=== PATIENT | male | born 1975 | race Caucasian/White ===

== ENCOUNTER 2021-01-08 11:41 | Outpatient (REF) | payer OTHER, SELFPAY ==
[2021-01-08 13:23] LABS: HCT 44.1 % (40.0-50.0); HGB 15.8 g/dL (13.5-17.5); MCH 32.2 pg (27.0-33.0); MCHC 35.8 % (32.0-36.0); MCV 89.8 fL (80-95); MPV 10.1 fL (8.0-11.0); Platelet Count 215 10^3/uL (130-400); RBC 4.91 10^6/uL (4.36-5.78); RDW 11.9 % (11.8-14.1); RDW-SD 38.8 fL; WBC 7.61 10^3/uL (4.4-10.8)
[2021-01-08 13:59] LABS: ALT 34 U/L (16-63); AST 32 U/L (15-37); Albumin 4.3 g/dL (3.4-5.0); BUN 21 mg/dL (7-18); Bilirubin, Total 0.7 mg/dL (0.2-1.0); Calcium 9.2 mg/dL (8.5-10.1); Calculated LDL 148 mg/dL (<100); Chloride 104 mmol/L (98-107); Cholesterol 241 mg/dL (<200); Glucose 88 mg/dL (74-106); HDL Cholesterol 68 mg/dL (40-60); Potassium 3.8 mmol/L (3.5-5.1); Sodium 142 mmol/L (136-145); Total Protein 7.3 g/dL (6.4-8.2); Triglyceride 127 mg/dL (<150)
[2021-01-08 14:19] LABS: Alkaline Phosphatase 74 U/L (46-116)
== END 2021-01-08 11:42 | disposition home or self-care (01) ==
LOC: NCHCN 11:41
PROVIDERS: PCP Nurse Practitioner Family; Visit Provider Nurse Practitioner Family
DX: K92.1 Melena (principal); N50.9 Disorder of male genital organs, unspecified; Z13.220 Encounter for screening for lipoid disorders; M25.561 Pain in right knee
CPT/HCPCS: 80053; 80061; 85027

== ENCOUNTER 2022-02-19 10:53 | Outpatient (REF) | payer OTHER, SELFPAY ==
--- NOTE | 2022-02-19 09:10 | SKI_PTH ---
PATIENT: Dori Rojas LOC: [facility]#:[id number] AGE/SX: 46/M ROOM: RE02/19/[address]: Dania Villegas : 1975 BED: DIS: 02/19/2022 SPEC #: [id number] RECD: 02/19/22 18:04 STATUS: KG REQ #: [id number] RICARDO: 02/19/22 09:[address]: Dania Villegas DEPT: Surgical Specimen RECD BY: Ce Busyb ENTERED: 02/19/22 18:04 SP TYPE: MONTSE PRATHER DR: Lacey Delarosa Tissues: 1 - SKIN BIOPSY(SHAVE/PUNCH) Procedures: SKIN LEVEL 4 Comments: [id number]
--- OUTSIDE RECORDS SUMMARY | 2022-02-19 11:00 | XMS_ITS | Encounter Summary ---
:1975 Author Organization [facility] [place] [address] Care Team Providers Name Role Phone Lacey Newell DOLORES Primary Care Provider Reason for Visit Reason Comments Testicular Mass Encounter Details Date Type Department Care Team Description 03/10/2019 Office Visit Urology at [facility] [place] Sania Patterson, Adenomatoid tumor [facility] [place] [address] UROLOGY DEPT [place], [place] [address] (Wo rk) Social History Tobacco Use Types Packs/Day Years Used Date Never Smoker Smokeless Tobacco: Never Used Comments: marijuana only Sex Assigned at Date Recorded Not on file documented as of this encounter Last Filed Vital Signs Vital Sign Reading Time Taken Comments Blood Pressure 119/75 03/10/2019 2:06 PM EDT Pulse 48 03/10/2019 2:06 PM EDT Temperature 36.7 ??C (98 ??F) 03/10/2019 2:06 PM EDT Respiratory Rate 16 03/10/2019 2:06 PM EDT Oxygen Saturation 98% 03/10/2019 2:06 PM EDT Inhaled Oxygen Concentration - - Weight - - Height - - Body Mass Index - - documented in this encounter Progress Notes Sania Patterson MD - 03/10/2019 2:00 PM EDT UROLOGY NOTE ?? 43 yo male who is here today as a scheduled follow up for a right sided testicular mass. He denies any changes in size or pain. He underwent a follow up scrotal u/s today. ?? Past??Medical??History No past medical history on file. Past??Surgical??History Past Surgical History: Procedure Laterality Date ??? HERNIA REPAIR Bilateral ? inguinal ?? Social??History Social History ?? Socioeconomic History ??? Marital status: ? Spouse name: None ??? Number of children: None ??? Years of education: None ??? Highest education level: None Social Needs ??? Financial resource strain: None ??? Food insecurity - worry: None ??? Food insecurity - inability: None ??? Transportation needs - medical: None ??? Transportation needs - non-medical: None Occupational History ??? None Tobacco Use ??? Smoking status: Never Smoker ??? Smokeless tobacco: Never Used ??? Tobacco comment: marijuana only Substance and Sexual Activity ??? Alcohol use: None ??? Drug use: None ??? Sexual activity: None Other Topics Concern ??? None Social History Narrative ??? None ?? Family??History Family History Problem Relation Age of Onset ??? Cancer Father ? testis cancer ?? ROS: negative for fever, chills, nausea, vomiting, diarrhea, constipation, hematuria, dysuria, CP, SOB ?? Most Recent Vitals: 03/10/19 1406 BP: 119/75 Pulse: (!) 48 Resp: 16 Temp: 36.7 ??C (98 ??F) SpO2: 98% Alert, oriented, nad External genitalia appear normal Right upper pole, medial testicular nodule noted and appears stable in size. ? Scrotal (Signed Final 03/10/2019 02:04 pm) ?? PATIENT INFO: ID #: [id number] : [birth year] (43 yrs) Name: JOSE MARTIN ROJAS Visit Date: 03/10/2019 01:29 pm ?? PERFORMED BY: Performed By: Karen Soto RDMS Attending: Jazmín Bonilla MD Referred By: SANIA PATTERSON Location: [facility] ?? SERVICE(S) PROVIDED: [facility] - Scrotum and Contents with Limited Vascular 09125, 35040 evaluation - [id number] ?? INDICATIONS: right testis mass ?? COMPARISON: Ultrasound: 01/10/2018, 06/16/2018, 09/07/2018 ?? RIGHT TESTICLE: Measurement(cm) L: 5.0 AP: 2.7 TV: 3.2 Vol (ml): 22.6 Vascularity: Normal color Doppler vascularity ?? -------- Lesions: -------- # Date Location Description L AP TV (cm) 1 03/10/19 Lateral 0.7 0.4 0.7 Superior # Date Location Description L AP TV (cm) 1 09/07/18 Lateral Echogenic 0.6 0.4 0.5 Superior halo with vascularity 1 06/16/18 Lateral 0.7 0.5 0.7 Superior ?? RIGHT EPIDIDYMIS: Head: Epididymal cyst,simple subcentemeter Body: Corrugated S/p vasectomy Tail: Corrugated s/p vasectomy Vascularity: Normal ?? RIGHT OTHER: Hydrocele: Small Varicocele: Not visualized ?? LEFT TESTICLE: Vascularity: Normal color Doppler vascularity ?? LEFT EPIDIDYMIS: Head: Normal Body: Corrugated S/p vasectomy Tail: Corrugated s/p vasectomy Vascularity: Normal ?? LEFT OTHER: Hydrocele: Small Varicocele: Not visualized ?? IMPRESSION Stable size and morphology and peripheral vascularity of the lateral superior peripheral right sided mass that currently measures 7 x 4 x 7 mm. This has been stable since May 2018. I believe that in fact this mass is located within the tunica and imaging on the current exam demonstrates echogenic splaying of the tunica about this mass on multiple images. 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 I explained the findings to the patient and explained to him that these tumors were benign and no intervention was needed. I offered him to schedule a scrotal u/s in 1y vs as needed for change in size of symptoms. He will discuss his options with his (who is a nurse), and contact me back if he wants to schedule a visit in 1 year. 17 minutes of this 20 minutes encounter was spent in counseling and coordination of care documented in this encounter Plan of Treatment Not on filedocumented as of this encounter Visit Diagnoses Diagnosis Adenomatoid tumor documented in this encounter Care Teams [employer] Special Education Teacher Relationship Specialty Start Date End Date Lacey Newell APRN PCP - General Family Medicine 09/07/18 [address] [place] [address] documented as of this encounter
--- OUTSIDE RECORDS SUMMARY | 2022-02-19 11:00 | XMS_ITS | Encounter Summary ---
:1975 Author Organization [facility] [place] [address] Care Team Providers Name Role Phone Lacey Newell DOLORES Primary Care Provider Reason for Visit Reason Comments Testicular Pain Encounter Details Date Type Department Care Team Description 01/30/2021 Office Visit Urology at [facility] [place] Sania Patterson, Adenomatoid tumor [facility] [place] [address] UROLOGY DEPT [place], [place] [address] (Wo rk) Social History Tobacco Use Types Packs/Day Years Used Date Never Smoker Smokeless Tobacco: Never Used Comments: marijuana only Sex Assigned at Date Recorded Not on file documented as of this encounter Last Filed Vital Signs Vital Sign Reading Time Taken Comments Blood Pressure 120/74 01/30/2021 10:37 AM EDT Pulse 47 01/30/2021 10:37 AM EDT Temperature - - Respiratory Rate - - Oxygen Saturation - - Inhaled Oxygen Concentration - - Weight 69.4 kg (153 lb) 01/30/2021 10:37 AM EDT Height - - Body Mass Index 23.96 09/07/2018 2:34 PM EST documented in this encounter Progress Notes Sania Patterson MD - 01/30/2021 10:40 AM EDT UROLOGY NOTE ?? Mr Rojas was seen by me few years ago for a right sided testicular mass which was consistent withan adenomatoid tumor. He was followed with scrotal u/s which showed no change in size over a year. He was seen by his PCP recently who suggested that he'd come here for a follow up. He denies any change is size but he states that the mass may be more tender to touch. ?? Past??Medical??History No past medical history on file. ?? Past??Surgical??History ? Past Surgical History: Procedure Laterality Date ??? HERNIA REPAIR Bilateral ? inguinal ?? Social??History Social History ? Socioeconomic History ??? Marital status: ? Spouse [...] Social History Narrative ??? None ?? Family??History ? Family History Problem Relation Age of Onset ??? Cancer Father ?testis cancer ?? ROS: negative for fever, chills, nausea, vomiting, diarrhea, constipation, hematuria, dysuria, CP, SOB ? Patient Vitals for the past 24 hrs: Pulse BP 01/30/21 1037 (!) 47 120/74 Alert, oriented, nad External genitalia appear normal Right upper pole, medial testicular nodule noted and appears stable in size, ~5mm. ?Scrotal ?(Signed Final 03/10/2019 02:04 pm) ?? PATIENT INFO: ??ID #: ?[id number] ?: ??[birth year] (43 yrs) ??Name: ?NETDAHE JAREN ?Visit Date: 03/10/2019 01:29 pm ?? PERFORMED BY: ??Performed By: ?Karen Soto RDMS ??Attending: ?Chad LEBLANC, Jazmín Price ??Referred By: ?SANIA PATTERSON ??Location: ?[facility] ?? SERVICE(S) PROVIDED: ?[facility] - Scrotum and Contents with Limited Vascular ?46349, [address]326 ?evaluation - [id number] ?? INDICATIONS: ?right testis mass ?? COMPARISON: ??Ultrasound: 01/10/2018, 06/16/2018, 09/07/2018 ?? RIGHT TESTICLE: ??Measurement(cm) ?L: ??5.0 ?AP: ?2.7 ?TV: ??3.2 ??Vol (ml): ?22.6 ??Vascularity: ?Normal color Doppler vascularity ?? -------- Lesions: -------- ?# ?Date ?Location ?Description ?L ?AP ?TV (cm) ?1 ?07/17/19 ?Lateral ?0.7 ?0.4 ?0.7 ?Superior ?# ?Date ?Location ?Description ?L ?AP ?TV (cm) ?1 ?01/14/19 ?Lateral ?Echogenic ?0.6 ?0.4 ?0.5 ?Superior ?halo with ?vascularity ?1 ?10/18 ?Lateral ?0.7 ?0.5 ?0.7 ?Superior ?? RIGHT EPIDIDYMIS: ??Head: ?Epididymal cyst,simple subcentemeter ??Body: ?Corrugated S/p vasectomy ??Tail: ?Corrugated s/p vasectomy ??Vascularity: ?Normal ?? RIGHT OTHER: ??Hydrocele: ?Small ??Varicocele: ?Not visualized ?? LEFT TESTICLE: ??Vascularity: ?Normal color Doppler vascularity ?? LEFT EPIDIDYMIS: ??Head: ?Normal ??Body: ?Corrugated S/p vasectomy ??Tail: ?Corrugated s/p vasectomy ??Vascularity: ?Normal ?? LEFT OTHER: ??Hydrocele: ?Small ??Varicocele: ?Not visualized ?? IMPRESSION ?Stable size and morphology and peripheral vascularity ??of ??the lateral superior peripheral right sided mass that ??currently measures 7 x 4 x ??7 mm. This has been stable since May 2018. I ??believe that in fact this mass ??is located within the tunica and imaging on the current ??exam demonstrates ??echogenic splaying of the tunica about this mass on ??multiple images. I believe ??this represents an adenomatoid tumor of the tunica ??vaginalis. ?? 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 We again discussed the findings and I offered him a repeat scrotal u/s which he declined. I recommended testicular self examination and I encouraged him to contact me back with any changes in size. He will follow up as needed. documented in this encounter Plan of Treatment Not on filedocumented as of this encounter Visit Diagnoses Diagnosis Adenomatoid tumor documented in this encounter Care Teams Housing Installer Relationship Specialty Start Date End Date Lacey Newell APRN PCP - General Family Medicine 09/07/18 [address] [place] [address] documented as of this encounter
--- OUTSIDE RECORDS SUMMARY | 2022-02-19 11:00 | XMS_ITS | Encounter Summary ---
:1975 [place] [address] Care Team Providers Name Role Phone Lacey Newell DOLORES Primary Care Provider Encounter Details Date Type Department Care Team Description 09/07/2018 Laboratory Appointment Lab 3L [facility] [place] [address] Social History Tobacco Use Types Packs/Day Years Used Date Never Smoker Smokeless Tobacco: Never Used Comments: marijuana only Sex Assigned at Date Recorded Not on file documented as of this encounter Plan of Treatment Not on filedocumented as of this encounter Procedures Procedure Name Priority Date/Time Associated Comments Diagnosis AFP TUMOR MARKER STAT 09/07/2018 12:44 Testicular mass Resu lts for this PM EST procedure are i n the results section. BETA HCG, QUANTITATIVE STAT 09/07/2018 12:44 Testicular mas s Results for this PM EST procedure are i n the results section. LACTATE DEHYDROGENASE STAT 09/07/2018 12:44 Testicular mass Results for this PM EST procedure are i n the results section. documented in this encounter Results Beta HCG, quantitative (09/07/2018 12:44 PM EST) P athologist Signature Beta hCG Quant <1 0 - 2 MECCA RIVERA mlU/ML [facility] Comment: REFERENCE RANGES NON- FEMALE: ??Less than 5 mIU/m L POSTMENOPAUSAL FEMALE: ??Less than 8 mIU /mL ? -- FEMALES -- Weeks of ? HCG range ??(mIU/mL) ? 3 weeks ? 5.8 - 71.2 ? 4 weeks ? 9.5 - 750 ? 5 weeks ? 217 - 7,138 ? 6 weeks ? 158 - 31,795 ? 7 weeks ? 3,697 - 163,563 ? 8 weeks ? 32,065 - 149,571 ? 9 weeks ? 63,803 - 151,410 ?10 weeks ? 46,509 - 186,977 ?12 weeks ? 27,832 - 210,612 ?14 weeks ? 13,950 - 62,530 ?15 weeks ? 12,039 - 70,971 ?16 weeks ? 9,040 - 56,451 ?17 weeks ? 8,175 - 55,868 ?18 weeks ? 8,099 - 58,176 Specimen Anatomical Collection Method Collection Time Receive d Time (Source) Location / / Volume Laterality Blood specimen 09/07/2018 12:44 9 (specimen) PM EST 12:54 PM EST Resulting Agency Comment Spec In Lab Neri Patterson MD CHEMISTRY ORDERABLES Performing Organization Address City/[facility] [address]/[facility] [place] [address] (ABNORMAL) Lactate Dehydrogenase (09/07/2018 12:44 PM EST) P athologist Signature [facility] [address] (H) [address] - [address] [facility] unit/L [facility] Specimen Anatomical Collection Method Collection Time Receive d Time (Source) Location / / Volume Laterality Blood specimen 09/07/2018 12:44 9 (specimen) PM EST 12:54 PM EST Resulting Agency Comment Spec In Lab Neri Patterson MD CHEMISTRY ORDERABLES Performing Organization Address City/[facility] [address]/[facility] [place] [address] AFP tumor marker (09/07/2018 12:44 PM EST) P athologist Signature AFP 7.6 <=8.3 ng/mL [facility] Specimen Anatomical Collection Method Collection Time Receive d Time (Source) Location / / Volume Laterality Blood specimen 09/07/2018 12:44 9 (specimen) PM EST 12:54 PM EST Resulting Agency Comment Spec In Lab Neri Patterson MD CHEMISTRY ORDERABLES Performing Organization Address City/[facility] [address]/ZIP Code Phon e Number [facility] [place] [address] documented in this encounter Visit Diagnoses Diagnosis Testicular mass Other specified disorder of male genital organs documented in this encounter Care Teams Elementary Education Teacher Relationship Specialty Start Date End Date Lacey Newell, PARTS PICKER PCP - General Family Medicine 09/07/18 [address] [place] [address] documented as of this encounter
--- OUTSIDE RECORDS SUMMARY | 2022-02-19 11:00 | XMS_ITS | Encounter Summary ---
:1975 Author Organization [facility] [place] [address] Care Team Providers Name Role Phone Lacey Newell DOLORES Primary Care Provider Encounter Details Date Type Department Care Team Description 09/07/2018 Hospital Encounter [place] [facility] [place]ia Patterson Testicular mass [facility] [place] [address] UROLOGY DEPT [phone] [place], [place] [address] Social History Tobacco Use Types Packs/Day Years Used Date Never Smoker Smokeless Tobacco: Never Used Comments: marijuana only Sex Assigned at Date Recorded Not on file documented as of this encounter Plan of Treatment Not on filedocumented as of this encounter Procedures Procedure Name Priority Date/Time Associated Diagnosis Comme nts US SCROTUM Routine 09/07/2018 1:52 PM Testicular mass Result s for this EST procedure are i n the results section . documented in this encounter Results US Scrotum (09/07/2018 1:52 PM EST) Anatomical Region Laterality Modality Pelvis Ultrasound Specimen (Source) Anatomical Collection Method Collection Time Re ceived Time Location / / Volume Laterality 09/07/2018 1:52 PM EST Impressions 09/07/2018 2:11 PM EST 1. Stable size and appearance of the ec hogenic, ovoid focus with a more sonolucent center arising from or abutt ing the capsule of the interpolar region of the right testicle. No increased vas cularity. This most likely represents a focus of old insult rather than a testi cular neoplasm but a follow-up ultrasound in six months is suggested to document continued stability. 2. Both testicles are normal in overall size and echotexture other than the above lesion. 3. Small bilateral epididymal head cyst s. 4. Small left varicocele and small, lew ateral hydroceles. ? Khris mireles MD Electronically Signed Final Report ?? 02:11 pm Narrative 09/07/2018 2:11 PM EST Scrotal ?(Signed Final 09/07/2018 02:11 pm) PATIENT INFO: ID #: ? [id number] ?: ??[birth year] (42 yrs) Name: ? JOSE MARTIN BROWNDDARD ? Visit Date: 09/07/2018 01:52 pm PERFORMED BY: Performed By: ? Ranjit Lennon RDMS Attending: ?Esau LEBLANC, José Pereira. Referred By: ?SANIA PATTERSON Location: ? [facility] SERVICE(S) PROVIDED: ??[facility] - Scrotum and Contents with Limit ed Vascular ?28395, 74574 ??evaluation - [id number] INDICATIONS: ??testicular mass COMPARISON: Ultrasound: OUTSIDE Scrotal 06/16/18 -------- HISTORY: -------- History of Vasectomy RIGHT TESTICLE: Measurement(cm) ? L: ??5.0 ?AP: ?? 2.8 ? TV: ??3.1 Vol (ml): ?22.7 Vascularity: ?Normal color Doppler vascularity -------- Lesions: -------- ??# ?Date ?Location ? Description ? L ? AP ? TV (cm) ??1 ?09/07/18 ?Lateral ? Echogenic ?0.6 ?0.4 ?0.5 ? Superior ? halo with ?vascularity Comment: ?Normal texture. Color Dop pler imaging utilized for ? this study RIGHT EPIDIDYMIS: Head: ?Epididymal cysts, largest me asuring 0.5 x 0.4 x 0.6 ?cm Body: ?Normal Tail: ?Normal Vascularity: ?? Normal Comment: ?Normal texture RIGHT OTHER: Hydrocele: ? Small Varicocele: ?Not visualized Other Findings: ??Appendix testis noted . LEFT TESTICLE: Measurement(cm) ? L: ??4.9 ?AP: ?? 2.6 ? TV: ??2.8 Vol (ml): ?18.7 Vascularity: ?Normal color Doppler vascularity Comment: ?Normal texture, no intrat esticular mass. Color ? Doppler imaging utili zed for this study LEFT EPIDIDYMIS: Head: ?Epididymal cysts, largest me asuring 0.6 x 0.5 x 0.6 ?cm. Body: ?Corrugated S/p vasectomy Tail: ?Corrugated s/p vasectomy Vascularity: ?? Normal Comment: ?Corrugated LEFT OTHER: Hydrocele: ? Small Varicocele: ?Mild Procedure Note Khris Cifuentes MD - 09/07/2018Format ting of this note might be different from the original. Scrotal (Signed Final 09/07/2018 02:11 pm) PATIENT INFO: ID #: [id number] : [birth year] (42 y rs) Name: JOSE MARTIN ROJAS Visit Date: 08/25 01:52 pm PERFORMED BY: Performed By: Ranjit Lennon RDMS Attending: Khris Cifuentes MD Referred By: SANIA PATTERSON Location: [facility] SERVICE(S) PROVIDED: [facility] - Scrotum and Contents with Limited Vascular 23022, [address]06 evaluation - [id number] INDICATIONS: testicular mass COMPARISON: Ultrasound: OUTSIDE Scrotal 06/16/18 -------- HISTORY: -------- History of Vasectomy RIGHT TESTICLE: Measurement(cm) L: 5.0 AP: 2.8 TV: 3.1 Vol (ml): 22.7 Vascularity: Normal color Doppler vascu larity -------- Lesions: -------- # Date Location Description L AP TV (cm ) 1 09/07/18 Lateral Echogenic 0.6 0.4 0. 5 Superior halo with vascularity Comment: Normal texture. Color Doppler imaging utilized for this study RIGHT EPIDIDYMIS: Head: Epididymal cysts, largest measuri ng 0.5 x 0.4 x 0.6 cm Body: Normal Tail: Normal Vascularity: Normal Comment: Normal texture RIGHT OTHER: Hydrocele: Small Varicocele: Not visualized Other Findings: Appendix testis noted. LEFT TESTICLE: Measurement(cm) L: 4.9 AP: 2.6 TV: 2.8 Vol (ml): 18.7 Vascularity: Normal color Doppler vascu larity Comment: Normal texture, no intratestic ular mass. Color Doppler imaging utilized for this study LEFT EPIDIDYMIS: Head: Epididymal cysts, largest measuri ng 0.6 x 0.5 x 0.6 cm. Body: Corrugated S/p vasectomy Tail: Corrugated s/p vasectomy Vascularity: Normal Comment: Corrugated LEFT OTHER: Hydrocele: Small Varicocele: Mild IMPRESSION 1. Stable size and appearance of the ec hogenic, ovoid focus with a more sonolucent center arising from or abutt ing the capsule of the interpolar region of the right testicle. No increased vas cularity. This most likely represents a focus of old insult rather than a testi cular neoplasm but a follow-up ultrasound in six months is suggested to document continued stability. 2. Both testicles are normal in overall size and echotexture other than the above lesion. 3. Small bilateral epididymal head cyst s. 4. Small left varicocele and small, lew ateral hydroceles. Khris Cifuentes MD Electronically Signed Final Report 09/07 02:11 pm Sania Patterson MD IMG US GEN ORDERABLES documented in this encounter Visit Diagnoses Diagnosis Testicular mass Other specified disorder of male genital organs documented in this encounter Care Teams Neonatal Intensive Care Nurse Relationship Specialty Start Date End Date Lacey Newell, DOLORES PCP - General Family Medicine 09/07/18 [address] [place] [address] documented as of this encounter
--- OUTSIDE RECORDS SUMMARY | 2022-02-19 11:00 | XMS_ITS | Clinical Summary ---
:1975 Author Organization [facility] [place] [address] Care Team Providers Name Role Phone Lacey Newell DOLORES Primary Care Provider Allergies No known active allergies Medications Medication Sig Dispensed Refills Start Date End Date Status ELDERBERRY FRUIT ORAL Take by mouth. 0 Active Active Problems Patient Care Coordination Note Formatting of this note might be differe nt from the original. Pronouned Nah-Carlo-Hey No additional problems on file Family History Medical History Relation Comments Cancer Father testis cancer Relation Status Comments Father Social History Tobacco Use Types Packs/Day Years Used Date Never Smoker Smokeless Tobacco: Never Used Comments: marijuana only Sex Assigned at Date Recorded Not on file Last Filed Vital Signs Vital Sign Reading Time Taken Comments Blood Pressure 120/74 01/30/2021 10:37 AM EDT Pulse 47 01/30/2021 10:37 AM EDT Temperature 36.7 ??C (98 ??F) 03/10/2019 2:06 PM EDT Respiratory Rate 16 03/10/2019 2:06 PM EDT Oxygen Saturation 98% 03/10/2019 2:06 PM EDT Inhaled Oxygen Concentration - - Weight 69.4 kg (153 lb) 01/30/2021 10:37 AM EDT Height 170.2 cm (5' 7) 09/07/2018 2:34 PM EST Body Mass Index 23.96 09/07/2018 2:34 PM EST Plan of Treatment Health Maintenance Due Date Last Done Comments Covid-19 Vaccine (#1) 1981 HIV screen 1994 Hepatitis C Screening 1994 Lipid Screening 1994 Tdap adult 1995 Tetanus vaccine 1995 Influenza (Flu) vaccine (1 of 1 - Influenza standard 04/25/2021 series) Colonoscopy 2021 Care Teams Stockroom Supervisor Relationship Specialty Start Date End Date Lacey Newell, APPARATUS ENGINEERING TECHNOLOGIST PCP - General Family Medicine 09/07/18 [address] [place] [address]
--- OUTSIDE RECORDS SUMMARY | 2022-02-19 11:00 | XMS_ITS | Encounter Summary ---
:1975 Author Organization [facility] [place] [address] Care Team Providers Name Role Phone Lacey Newell DOLORES Primary Care Provider Encounter Details Date Type Department Care Team Description 03/10/2019 Hospital Encounter Ultrasound at [facility] Sania Patterson, Testis mass [facility] [place] [address] UROLOGY DEPT [place], [place] [address] (Wo rk) Social History Tobacco Use Types Packs/Day Years Used Date Never Smoker Smokeless Tobacco: Never Used Comments: marijuana only Sex Assigned at Date Recorded Not on file documented as of this encounter Medications at Time of Discharge Medication Sig Dispensed Refills Start Date End Date ELDERBERRY FRUIT ORAL Take by mouth. 0 documented as of this encounter Plan of Treatment Not on filedocumented as of this encounter Procedures Procedure Name Priority Date/Time Associated Diagnosis Comme nts US SCROTUM Routine 03/10/2019 1:32 PM Testis mass Results f or this EDT procedure are i n the results section . documented in this encounter Results US Scrotum (03/10/2019 1:32 PM EDT) Anatomical Region Laterality Modality Pelvis Ultrasound Specimen (Source) Anatomical Collection Method Collection Time Re ceived Time Location / / Volume Laterality 03/10/2019 1:29 PM EDT Impressions 03/10/2019 2:04 PM EDT ?? Stable size and morphology and perip heral vascularity of the lateral superior peripheral right s ided mass that currently measures 7 x 4 x 7 mm. This has been stable since 2017. I believe that in fact this mass is located within the tunica and imagin g on the current exam demonstrates echogenic splaying of the tunica about this mass on multiple images. 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 Thank you for letting us participate in the care of this patient. For questions regarding this report, please contact t sri number below. Electronically signed by: Annette Buchanan [facility] ([phone]), at 03/10/2019 1: 55 PM ? Jazmín Bonilla, Staff Physician Electronically Signed Final Report ?? 02:04 pm Narrative 03/10/2019 2:04 PM EDT Scrotal ?(Signed Final 03/10/2019 02:04 pm) PATIENT INFO: ID #: ? [id number] ?: ??[birth year] (43 yrs) Name: ? JOSE MARTIN JAREN ? Visit Date: 03/10/2019 01:29 pm PERFORMED BY: Performed By: ? Karen Soto RDMS Attending: ?Jazmín Bonilla MD Referred By: ?SANIA PATTERSON Location: ? [place] SERVICE(S) PROVIDED: ??[facility] - Scrotum and Contents with Limit ed Vascular ?08187, 44077 ??evaluation - [id number] INDICATIONS: ??right testis mass COMPARISON: Ultrasound: 01/10/2018, 06/16/2018, 09/07 RIGHT TESTICLE: Measurement(cm) ? L: ??5.0 ?AP: ?? 2.7 ? TV: ??3.2 Vol (ml): ?22.6 Vascularity: ?Normal color Doppler vascularity -------- Lesions: -------- ??# ?Date ?Location ? Description ? L ? AP ? TV (cm) ??1 ?03/10/19 ?Lateral ? 0.7 ?0.4 ?0.7 ? Superior ??# ?Date ?Location ? Description ? L ? AP ? TV (cm) ??1 ?09/07/18 ?Lateral ? Echogenic ?0.6 ?0.4 ?0.5 ? Superior ? halo with ?vascularity ??1 ?06/16/18 ?Lateral ? 0.7 ?0.5 ?0.7 ? Superior RIGHT EPIDIDYMIS: Head: ?Epididymal cyst,simple subce ntemeter Body: ?Corrugated S/p vasectomy Tail: ?Corrugated s/p vasectomy Vascularity: ?? Normal RIGHT OTHER: Hydrocele: ? Small Varicocele: ?Not visualized LEFT TESTICLE: Vascularity: ?Normal color Doppler vascularity LEFT EPIDIDYMIS: Head: ?Normal Body: ?Corrugated S/p vasectomy Tail: ?Corrugated s/p vasectomy Vascularity: ?? Normal LEFT OTHER: Hydrocele: ? Small Varicocele: ?Not visualized Procedure Note Jazmín Bonilla MD - 03/10/2019 Scrotal (Signed Final 03/10/2019 02:04 pm) PATIENT INFO: ID #: [id number] : [birth year] (43 y rs) Name: JOSE MARTIN ROJAS Visit Date: 02/22 01:29 pm PERFORMED BY: Performed By: Karen Soto RDMS Attending: Jazmín Bonilla MD Referred By: SANIA PATTERSON Location: [place] SERVICE(S) PROVIDED: [facility] - Scrotum and Contents with Limited Vascular 63854, 65985 evaluation - [id number] INDICATIONS: right testis mass COMPARISON: Ultrasound: 01/10/2018, 06/16/2018, 09/07 RIGHT TESTICLE: Measurement(cm) L: 5.0 AP: 2.7 TV: 3.2 Vol (ml): 22.6 Vascularity: Normal color Doppler vascu larity -------- Lesions: -------- # Date Location Description L AP TV (cm ) 1 03/10/19 Lateral 0.7 0.4 0.7 Superior # Date Location Description L AP TV (cm ) 1 09/07/18 Lateral Echogenic 0.6 0.4 0. 5 Superior halo with vascularity 1 06/16/18 Lateral 0.7 0.5 0.7 Superior RIGHT EPIDIDYMIS: Head: Epididymal cyst,simple subcenteme ter Body: Corrugated S/p vasectomy Tail: Corrugated s/p vasectomy Vascularity: Normal RIGHT OTHER: Hydrocele: Small Varicocele: Not visualized LEFT TESTICLE: Vascularity: Normal color Doppler vascu larity LEFT EPIDIDYMIS: Head: Normal Body: Corrugated S/p vasectomy Tail: Corrugated s/p vasectomy Vascularity: Normal LEFT OTHER: Hydrocele: Small Varicocele: Not visualized IMPRESSION Stable size and morphology and peripher al vascularity of the lateral superior peripheral right s ided mass that currently measures 7 x 4 x 7 mm. This has been stable since 2017. I believe that in fact this mass is located within the tunica and imagin g on the current exam demonstrates echogenic splaying of the tunica about this mass on multiple images. 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 Thank you for letting us participate in the care of this patient. For questions regarding this report, please contact t he number below. Electronically signed by: Annette Buchanan [facility] ([phone]), at 03/10/2019 1: 55 PM Jazmín Bonilla, Staff Physician Electronically Signed Final Report 03/10 02:04 pm Sania Patterson MD [facility] GEN ORDERABLES documented in this encounter Visit Diagnoses Diagnosis Testis mass Other specified disorder of male genital organs documented in this encounter Care Teams Spudder Relationship Specialty Start Date End Date Lacey Newell, DOLORES PCP - General Family Medicine 09/07/18 [address] [place] [address] documented as of this encounter
--- OUTSIDE RECORDS SUMMARY | 2022-02-19 11:01 | XMS_ITS | Encounter Summary ---
:1975 Author Organization [facility] Address [address] [place] [address] Care Team Providers Name Role Phone None, Provider Primary Care Provider Unavailable Encounter Details Date Type Department Care Team Description 06/16/2018 Hospital Encounter [facility] - Unknown, Dewey watson [facility] [phone] [place] [address] (Work) [place] [address] Social History Tobacco Use Types Packs/Day Years Used Date Never Assessed Sex Assigned at Date Recorded Not on file documented as of this encounter Discharge Disposition Disposition Code Departure Means Destination Home or Self [place] documented in this encounter Plan of Treatment Not on filedocumented as of this encounter Visit Diagnoses Not on filedocumented in this encounter Care Teams Belting Inspector Relationship Specialty Start Date End Date None, Provider PCP - General 07/08/15 02/14/21 documented as of this encounter
--- OUTSIDE RECORDS SUMMARY | 2022-02-19 11:01 | XMS_ITS | Encounter Summary ---
:1975 [place] [address] Care Team Providers Name Role Phone Lacey Newell APRN Primary Care Provider Reason for Visit Reason Comments Follow-up Encounter Details Date Type Department Care Team Description 09/07/2018 Office Visit Urology at [facility] Sania Patterson MD Testis [facility] [place] [address] UROLOGY DEPT [phone] [place] [id number] (Wo rk) Social History Tobacco Use Types Packs/Day Years Used Date Never Smoker Smokeless Tobacco: Never Used Comments: marijuana only Sex Assigned at Date Recorded Not on file documented as of this encounter Last Filed Vital Signs Vital Sign Reading Time Taken Comments Blood Pressure 130/66 09/07/2018 2:34 PM EST Pulse 54 09/07/2018 2:34 PM EST Temperature 37.1 ??C (98.8 ??F) 09/07/2018 2:34 PM EST Respiratory Rate 18 09/07/2018 2:34 PM EST Oxygen Saturation 98% 09/07/2018 2:34 PM EST Inhaled Oxygen Concentration - - Weight 68 kg (150 lb) 09/07/2018 2:34 PM EST Height 170.2 cm (5' 7) 09/07/2018 2:34 PM EST Body Mass Index 23.49 09/07/2018 2:34 PM EST documented in this encounter Progress Notes Sania Patterson MD - 09/07/2018 2:40 PM EST UROLOGY NOTE Mr Rojas is here as a scheduled follow up for a right sided testicular mass. He denies any changes in size or pain. He underwent a follow up scrotal u/s and labs today. No past medical history on file. Past Surgical History: Procedure Laterality Date ??? HERNIA REPAIR Bilateral inguinal Social History Socioeconomic History ??? Marital status: Spouse name: None ??? Number of children: [...] ??? None Social History Narrative ??? None Family History Problem Relation Age of Onset ??? Cancer Father testis cancer ROS: negative for fever, chills, nausea, vomiting, diarrhea, constipation, hematuria, dysuria, CP, SOB Most Recent Vitals: 09/07/18 1434 BP: 130/66 Pulse: 54 Resp: 18 Temp: 37.1 ??C (98.8 ??F) SpO2: 98% PainSc: 0 - No pain Alert, oriented, nad External genitalia appear normal Right upper pole, medial testicular nodule noted and appears stable in size. Results for JOSE MARTIN ROJAS ( ) as of 09/07/2018 15:37 Ref. Range 09/07/2018 12:44 LDH Latest Ref Range: 110 - 220 unit/L 223 (H) AFP Latest Ref Range: <=8.3 ng/mL 7.6 Beta hCG Quant Latest Ref Range: 0 - 2 mlU/ML <1 Scrotal (Signed Final 09/07/2018 02:11 pm) ?? PATIENT INFO: ID #: [id number] : [birth year] (42 yrs) Name: JOSE MARTIN ROJAS Visit Date: 09/07/2018 01:52 pm ?? PERFORMED BY: Performed By: Ranjit Lennon RDMS Attending: Khris Cifuentes MD Referred By: SANIA PATTERSON Location: [place] ?? SERVICE(S) PROVIDED: [facility] - Scrotum and Contents with Limited Vascular 76236, [address]5650 evaluation - [id number] ?? INDICATIONS: testicular mass ?? COMPARISON: Ultrasound: OUTSIDE Scrotal 06/16/18 ?? -------- HISTORY: -------- History of Vasectomy ?? RIGHT TESTICLE: Measurement(cm) L: 5.0 AP: 2.8 TV: 3.1 Vol (ml): 22.7 Vascularity: Normal color Doppler vascularity -------- Lesions: -------- # Date Location Description L AP TV (cm) 1 09/07/18 Lateral Echogenic 0.6 0.4 0.5 Superior halo with vascularity ?? Comment: Normal texture. Color Doppler imaging utilized for this study ?? RIGHT EPIDIDYMIS: Head: Epididymal cysts, largest measuring 0.5 x 0.4 x 0.6 cm Body: Normal Tail: Normal Vascularity: Normal ?? Comment: Normal texture ?? RIGHT OTHER: Hydrocele: Small Varicocele: Not visualized Other Findings: Appendix testis noted. ?? LEFT TESTICLE: Measurement(cm) L: 4.9 AP: 2.6 TV: 2.8 Vol (ml): 18.7 Vascularity: Normal color Doppler vascularity ?? Comment: Normal texture, no intratesticular mass. Color Doppler imaging utilized for this study ?? LEFT EPIDIDYMIS: Head: Epididymal cysts, largest measuring 0.6 x 0.5 x 0.6 cm. Body: Corrugated S/p vasectomy Tail: Corrugated s/p vasectomy Vascularity: Normal Comment: Corrugated LEFT OTHER: Hydrocele: Small Varicocele: Mild ?? IMPRESSION ?? 1. Stable size and appearance of the echogenic, ovoid focus with a more sonolucent center arising from or abutting the capsule of the interpolar region of the right testicle. No increased vascularity. This most likely represents a focus of old insult rather than a testicular neoplasm but a follow-up ultrasound in six months is suggested to document continued stability. 2. Both testicles are normal in overall size and echotexture other than the above lesion. 3. Small bilateral epididymal head cysts. 4. Small left varicocele and small, bilateral hydroceles. A/P: Stable appearing avascular right testicular mass with negative tumor markers. I explained to him that this was more likely to benign than malignant and I recommended a follow up imaging in 6 months. Hewas comfortable with the plan. documented in this encounter Plan of Treatment Not on filedocumented as of this encounter Results US Scrotum (03/10/2019 1:32 [...] report, please contact t he number below. 1: 55 PM ? Jazmín Bonilla, Staff Physician Electronically Signed Final Report ?? 02:04 pm Narrative 03/10/2019 2:04 PM EDT Scrotal ?(Signed Final 03/10/2019 02:04 pm) PATIENT INFO: ID #: ? [id number] ?: ??[birth year] (43 yrs) Name: ? JOSE MARTIN ROJAS ? Visit Date: 03/10/2019 01:29 pm PERFORMED BY: Performed By: ? Karen Soto RDMS Attending: ?Jazmín Bonilla MD Referred By: ?SANIA PATTERSON Location: ? [place] SERVICE(S) PROVIDED: ??[facility] - Scrotum and Contents with Limit ed Vascular ?13247, 72305 ??evaluation - [id number] INDICATIONS: ??right testis mass COMPARISON: Ultrasound: 01/10/2018, [...] 03/10/2019 02:04 pm) PATIENT INFO: ID #: [id number] : [birth year] (43 y rs) Name: JOSE MARTIN ROJAS Visit Date: 02/22 01:29 pm PERFORMED BY: Performed By: Karen Soto RDMS Attending: Jazmín Bonilla MD Referred By: SANIA PATTERSON Location: [place] SERVICE(S) PROVIDED: [facility] - Scrotum and Contents with Limited Vascular 68100, 09142 evaluation - [id number] INDICATIONS: right testis mass COMPARISON: Ultrasound: 01/10/2018, [...] report, please contact t he number below. 1: 55 PM Jazmín Bonilla, Staff Physician Electronically Signed Final Report 03/10 02:04 pm Sania Patterson MD [facility] GEN ORDERABLES documented in this encounter Visit Diagnoses Diagnosis Testis mass Other specified disorder of male genital organs Testis mass Other specified disorder of male genital organs documented in this encounter Care Teams Electronics Repair Technician Relationship Specialty Start Date End Date Lacey Newell APRN PCP - General Family Medicine 09/07/18 [address] [place] [address] documented as of this encounter
--- OUTSIDE RECORDS SUMMARY | 2022-02-19 11:01 | XMS_ITS | Encounter Summary ---
:1975 Author Organization [facility] Address [address] [place] [address] Care Team Providers Name Role Phone Lacey Newell CHECK WRITING MACHINE OPERATOR Primary Care Provider Reason for Visit Reason Comments New Patient Visit Encounter Details Date Type Department Care Team Description 04/12/2021 Office Visit [facility] - Maya Wang's cyst of knee, [facility] Orth[facility]ics & MD Cheli right (Primary Dx) Sport Medicine [address] [place] [address] [place] [address] Social History Tobacco Use Types Packs/Day Years Used Date Current Every Day Smoker Cigarettes Smokeless Tobacco: Never Used Alcohol Use Standard Drinks/Week Comments Never 0 (1 standard drink = 0.6 oz pure alcoho l) Sex Assigned at Date Recorded Not on file COVID-19 Exposure Response Date Recorded In the last month, have you been in contact with No / Unsure 04/12/2021 13:09 EDT someone who was confirmed or suspected to have Coronavirus / COVID-19? documented as of this encounter Progress Notes Maya Wang MD - 04/12/2021 1300 EDT Orthopaedic Surgery Office Note Dori Rojas 1975 [id number] Chief Complaint: No chief complaint on file. History of Present Illness: Dori Rojas is a very pleasant 45 y.o. male who presents today for evaluation of his right kneebaker's cyst. He works in forestry and enjoys running long distances. This began somewhat insidiously, but became persistently noticeable. He has pain and tightness in the back of the knee. It took himsome time to identify the culprit, but then he began to associate it with squatting and lifting. He was seen by PCP and found to have a dean's cyst on ultrasound. He has had episodes including one more noticeable time with loaded twisting injury. Pain localizes more to medial knee. Since I last saw him with the above history, he has been doing well and symptoms are very manageablefor his athletic endeavors. Review of Systems: As above. Past Medical History: Active Ambulatory Problems Diagnosis Date Noted ??? No Active Ambulatory Problems Resolved Ambulatory Problems Diagnosis Date Noted ??? No Resolved Ambulatory Problems No Additional Past Medical History Past Surgical History: No past surgical history on file. Medications: No current outpatient medications on file prior to visit. No current facility-administered medications on file prior to visit. Allergies: Not on File Social History: Social History Occupational History ??? Not on file Tobacco Use ??? Smoking status: Current Every Day Smoker Types: Cigarettes ??? Smokeless tobacco: Never Used Substance and Sexual Activity ??? Alcohol use: Never ??? Drug use: Never ??? Sexual activity: Not on file Family History: No family history on file. Physical Examination: No data found. Gen- no acute distress, awake alert and appropriate (from prior) Right Knee examined with inspection and palpation of hamstrings, iliotibial band, pes anserinus bursa, posteriorly for presence or absence of dean's cyst, medial and lateral joint lines, pre-patellar bursa, inferior fat pad and quadriceps and patellar tendon. Range of motion to flexion and extension, anterior and posterior drawer testing, varus and valgus stress, Jessica's and McMurrays performed. Examination was notable for the following- large dean's cyst. Some medial joint line tenderness andapprehension with Federico exam. Compartments soft. Light touch sensation intact in the superficial peroneal, deep peroneal, tibial distribution. Extensor hallucis longus, tibialis anterior, and gastroc/soleus complex strength 5/5, foot warm and well perfused, with capillary refill <2 seconds. Imaging Studies: Xrays show minimal degenerative changes. MRI of the right knee- 1. Multiloculated 7 cm Dean's cyst. 2. Mild medial meniscal mucoid degeneration, with a possible subtle tear at the body-posterior horn junction. 3. Cruciate ligaments, medial and lateral supporting structures intact. 4. Mild-moderate chondral thinning and partial-thickness fissuring along the median patellar ridge. 5. No fracture, bone marrow contusion or avascular necrosis identified. Assessment and Plan: Dori Rojas is a very pleasant 45 y.o. male who presents today for evaluation of right knee dean's cyst. His MRI did not show an obvious discrete meniscus tear, but possible subtle tearing. He also had some degenerative change within the patellofemoral joint. After showing him these findings anddiscussing implications, he would opt to follow present progress and if needed might call for eitherultrasound guided aspiration (with a provider who does this) or steroid injection. Maya Wang MD Orthopaedics and Sports Medicine [facility] [address] [place], [place] documented in this encounter Plan of Treatment Not on filedocumented as of this encounter Visit Diagnoses Diagnosis Dean's cyst of knee, right - Primary documented in this encounter Care Teams Medical Records Technician Relationship Specialty Start Date End Date Lacey Newell, CHUCKY PCP - General 02/15/21 [address] [place] [address] documented as of this encounter
--- OUTSIDE RECORDS SUMMARY | 2022-02-19 11:01 | XMS_ITS | Encounter Summary ---
:1975 Author Organization [facility] [place] [address] Care Team Providers Name Role Phone Jewell Clark MD Primary Care Provider Encounter Details Date Type Department Care Team Description 06/29/2018 Telephone Urology at [facility] Neri Patterson MD [facility] [place] [address] UROLOGY DEPT [phone] [place], [place] [address] (Wo rk) Social History Tobacco Use Types Packs/Day Years Used Date Never Smoker Smokeless Tobacco: Never Used Comments: marijuana only Sex Assigned at Date Recorded Not on file documented as of this encounter Miscellaneous Notes Telephone Encounter - Mey Nickerson - 07/06/2018 9:53 AM EST Patient called and would like to speak with Dr. Patterson regarding his decision he has made/leaning towards. He can be reached at [phone]. Thank you! Telephone Encounter - Ravindra Dutton RN - 06/30/2018 12:31 PM EST Verified patient name and date of Spoke with the pt's and told her that Dr Patterson will contact them either evening or Friday morning. She agreed. Telephone Encounter - Paige Hickey - 06/29/2018 3:14 PM EST Pt's called wondering when they might hear back from Dr. Patterson about Tumor Board suggestions. She can be reached at [phone] documented in this encounter Plan of Treatment Not on filedocumented as of this encounter Visit Diagnoses Not on filedocumented in this encounter Care Teams Wrapper Layer And Examiner Soft Work Relationship Specialty Start Date End Date Jewell Clark MD PCP - General 07/17/10 09/06/18 [facility] [place] [address] documented as of this encounter
--- OUTSIDE RECORDS SUMMARY | 2022-02-19 11:01 | XMS_ITS | Encounter Summary ---
:[address] [facility] Address [address] [place] [address] Care Team Providers Name Role Phone Lacey Newell THERMOSTATIC CONTROLS SUPERVISOR Primary Care Provider Reason for Referral Radiology Services (Routine) - Specialty Report Received Specialty Diagnoses / Procedures Referred By Contact Refer red To Contact Diagnoses Chronic pain of right knee Maya Wang MD Procedures XR ORBITS FOR FOREIGN BODY [address] [facility] [address] [place] [address] Referral ID Status Reason Start Date Expiration Date Visits V isits Requested Authorized [id number] Specialty 02/28/2021 1 1 Report Received Radiology Services (Routine) - Specialty Report Received Specialty Diagnoses / Procedures Referred By Contact Refer red To Contact Radiology Diagnoses Chronic pain of right knee Maya Wang MD Procedures MR KNEE WO CONTRAST RIGHT [address] [facility] [address] [place] [address] Referral ID Status Reason Start Date Expiration Date Visits V isits Requested Authorized [id number] Specialty 02/28/2021 1 1 Report Received Reason for Visit Reason Comments Cyst Referral (Routine) - Specialty Report Received Specialty Diagnoses / Procedures Referred By Contact Refer red To Contact Orthopedic Surgery Diagnoses Synovial cyst of popliteal space (Dean), right knee Lacey Newell, THERMOSTATIC CONTROLS SUPERVISOR [facility] [address] [place] [address] [address], [place] [address] [address] [place] [address] Phone: Fax: Referral ID Status Reason Start Date Expiration Date Visits V isits Requested Authorized [id number] Specialty 1 1 Report Received Encounter Details Date Type Department Care Team Description 02/27/2021 Office Visit [facility] - Maya Wang Chronic pain of right [facility] Orthopedics & MD Cheli knee (Primary Dx) Sport Medicine [address] [facility] [address] [place] [address] [place] [id number] Social History Tobacco Use Types Packs/Day Years Used Date Current Every Day Smoker Cigarettes Smokeless Tobacco: Never Used Alcohol Use Standard Drinks/Week Comments Never 0 (1 standard drink = 0.6 oz pure alcoho l) Sex Assigned at Date Recorded Not on file COVID-19 Exposure Response Date Recorded In the last month, have you been in contact with No / Unsure 02/27/2021 11:32 EDT someone who was confirmed or suspected to have Coronavirus / COVID-19? documented as of this encounter Last Filed Vital Signs Vital Sign Reading Time Taken Comments Blood Pressure - - Pulse - - Temperature 36.6 ??C (97.8 ??F) 02/27/2021 1133 EDT Respiratory Rate - - Oxygen Saturation - - Inhaled Oxygen Concentration - - Weight - - Height - - Body Mass Index - - documented in this encounter Progress Notes Maya Wang MD - 02/27/2021 1130 EDT Orthopaedic Surgery Office Note Dori Rojas 1975 [id number] Chief Complaint: Chief Complaint Patient presents with ??? Right Knee - Cyst History of Present Illness: Dori Rojas is a 45 y.o. male who presents today for evaluation of his right knee dean's cyst.He works in forestry and enjoys running long distances. This began somewhat insidiously, but became persistently noticeable. He has pain and tightness in the back of the knee. It took him some time to identify the culprit, but then he began to associate it with squatting and lifting. He was seen by PCP and found to have a dean's cyst on ultrasound. He has had episodes including one more noticeable time with loaded twisting injury. Pain localizes more to medial knee. Review of Systems: As above. Past Medical [...] no acute distress, awake alert and appropriate Right Knee examined with inspection and palpation [...] Imaging Studies: Xrays show minimal degenerative changes. Assessment and Plan: Dori Rojas is a very pleasant 45 y.o. male who presents today for evaluation of right knee dean's cyst. On history, exam and imaging, I am most suspicious of a medial meniscal tear as the cause of their symptoms. The nature of the condition was discussed with them along with options for the treatment of the condition. Will plan on proceeding with MRI of the knee. We will see them back to review results. Maya Wang MD Orthopaedics and Sports Medicine [facility], [facility] [address] [place], [place] Emely Garcia MA - 02/27/2021 1130 EDT Patient presents in clinic today to establish care and receive evaluation for his Right Knee Bakers Cyst. He was seen by his PCP on 01/29/21 for Right Popliteal Fossa Swelling consistent with a bakers cyst. U/S available from 01/17/21. documented in this encounter Plan of Treatment Scheduled Orders Name Type Priority Associated Diagnoses Order S chedule XR KNEE RIGHT 3 VIEWS Imaging Routine Chronic pain of rig ht Ordered: 02/28/2021 knee MR KNEE WO CONTRAST Imaging Routine Chronic pain of right Expected: 02/28/2021 RIGHT knee (Approximate), Expires: 2022 XR ORBITS FOR FOREIGN Imaging Routine Chronic pain of rig ht Ordered: 02/28/2021 BODY knee documented as of this encounter Procedures Procedure Name Priority Date/Time Associated Diagnosis Comme nts XR KNEE RIGHT 3 02/27/2021 15:26 Results for this VIEWS EDT procedure are i n the results section. documented in this encounter Results XR KNEE RIGHT 3 VIEWS (02/27/2021 15:26 EDT) Specimen Narrative [facility] - 02/27/2021 15:26 EDT ? EXAM: RADIOLOGY/KNEE RT 3 VIEW ?EX. D/ (1213) ? CLINICAL INFORMATION: ? M25.561, CHRONIC PAIN OF RIGHT KN EE ? INDICATION: M25.561, CHRONIC PAIN OF RIGHT KNEE NEW PATIENT - DEAN'S ? CYST IN RIGHT KNEE ? TECHNIQUE: 3 views of the right k nee. ? COMPARISON: None. ? FINDINGS: The bony alignment is a natomic. No acute fracture is ? detected. The joint spaces are pr eserved. No joint effusion is ? evident. ? IMPRESSION: ? Normal right knee radiographs. ? REPORT SIGNED IN OTHER VENDOR SYSTEM 02/27/2021 ?Reported B y: Donavan Brown MD ? CC: ? Transcribed Date/Time: 02/27/2021 (1525) ? Floorworker Distributor: ? Printed Date/Time: 02/27/2021 () ? PAGE 1 ? Abimbola d Report ? Procedure Note Donavan Brown MD - 02/27/2021 EXAM: RADIOLOGY/KNEE RT 3 VIEW EX. D/ (1213) CLINICAL INFORMATION: M25.561, CHRONIC PAIN OF RIGHT KNEE INDICATION: M25.561, CHRONIC PAIN OF RI GHT KNEE NEW PATIENT - DEAN'S CYST IN RIGHT KNEE TECHNIQUE: 3 views of the right knee. COMPARISON: None. FINDINGS: The bony alignment is anatomi c. No acute fracture is detected. The joint spaces are preserve d. No joint effusion is evident. IMPRESSION: Normal right knee radiographs. REPORT SIGNED IN OTHER VENDOR SYSTEM 02/27/2021 Reported By: Donavan Brown MD CC: Transcribed Date/Time: 02/27/2021 (1525 ) Floorworker Distributor: Printed Date/Time: 02/27/2021 (4588) PAGE 1 Signed Report Performing Organization Address City/State/ZIP Code Phon e Number [facility] documented in this encounter Visit Diagnoses Diagnosis Chronic pain of right knee - Primary documented in this encounter Care Teams Sub Prior Relationship Specialty Start Date End Date Lacey Newell, THERMOSTATIC CONTROLS SUPERVISOR PCP - General 02/15/21 [address] [place] [address] documented as of this encounter
--- OUTSIDE RECORDS SUMMARY | 2022-02-19 11:01 | XMS_ITS | Encounter Summary ---
:1975 Author Organization [facility] Address [address] [place] [address] Care Team Providers Name Role Phone None, Provider Primary Care Provider Unavailable Encounter Details Date Type Department Care Team Description 01/10/2018 Hospital Encounter [facility] - Unknown, Dewey watson [facility] [phone] [place] [address] (Work) [place] [address] Social History Tobacco Use Types Packs/Day Years Used Date Never Assessed Sex Assigned at Date Recorded Not on file documented as of this encounter Discharge Disposition Disposition Code Departure Means Destination Home or Self Correction documented in this encounter Plan of Treatment Not on filedocumented as of this encounter Visit Diagnoses Not on filedocumented in this encounter Care Teams Immigration Judge Relationship Specialty Start Date End Date None, Provider PCP - General 07/08/15 02/14/21 documented as of this encounter
--- OUTSIDE RECORDS SUMMARY | 2022-02-19 11:01 | XMS_ITS | Encounter Summary ---
:1975 Author Organization [facility] [place] [address] Care Team Providers Name Role Phone Jewell Clark MD Primary Care Provider Encounter Details Date Type Department Care Team Description 06/16/2018 Hospital Encounter Radiology Library at [facility] Lacey Newell, [facility] [address] [place] [address] [place] [address] [phone] Social History Tobacco Use Types Packs/Day Years Used Date Never Assessed Sex Assigned at Date Recorded Not on file documented as of this encounter Plan of Treatment Not on filedocumented as of this encounter Procedures Procedure Name Priority Date/Time Associated Comments Diagnosis FILM LIBRARY STORAGE Routine 06/16/2018 12:00 AM Results for this ONLY ULTRASOUND EDT procedure ar e in STUDY the results section. documented in this encounter Results Film Library- Storage Only Ultrasound Study (06/16/2018 12:00 AM EDT) Specimen (Source) Anatomical Location Collection Method / Collectio n Time Received Time / Laterality Volume Narrative [facility] - 06/17/2018 11:19 AM EDT This exam is for storage only and is aut o-finalizing. Lacey Newell APRN [facility] FILM LIBRARY ORDERABLES Performing Organization Address City/State/ZIP Code Phon e Number [place], [place] documented in this encounter Visit Diagnoses Not on filedocumented in this encounter Care Teams Microbiology Professor Relationship Specialty Start Date End Date Jewell Clark MD PCP - General 07/17/10 09/06/18 [facility]ILD [facility]VOCACY & [place] [address] documented as of this encounter
--- OUTSIDE RECORDS SUMMARY | 2022-02-19 11:01 | XMS_ITS | Encounter Summary ---
:1975 Author Organization [facility] [place] [address] Care Team Providers Name Role Phone Jewell Clark MD Primary Care Provider Encounter Details Date Type Department Care Team Description 01/10/2018 Hospital Encounter Radiology Library at [facility] Lacey Newell, [facility] [address] [place] [address] [place] [address] [phone] Social History Tobacco Use Types Packs/Day Years Used Date Never Assessed Sex Assigned at Date Recorded Not on file documented as of this encounter Plan of Treatment Not on filedocumented as of this encounter Procedures Procedure Name Priority Date/Time Associated Comments Diagnosis FILM LIBRARY STORAGE Routine 01/10/2018 12:00 AM Results for this ONLY ULTRASOUND EDT procedure ar e in STUDY the results section. documented in this encounter Results Film Library- Storage Only Ultrasound Study (01/10/2018 12:00 AM EDT) Specimen (Source) Anatomical Location Collection Method / Collectio n Time Received Time / Laterality Volume Narrative [facility] - 06/17/2018 11:45 AM EDT This exam is for storage only and is aut o-finalizing. Lacey Newell APRN [facility] FILM LIBRARY ORDERABLES Performing Organization Address City/State/ZIP Code Phon e Number [place], [place] documented in this encounter Visit Diagnoses Not on filedocumented in this encounter Care Teams Flight Service Agent Relationship Specialty Start Date End Date Jewell Clark MD PCP - General 07/17/10 09/06/18 [facility] CHILD ADVOCACY & [place] [address] documented as of this encounter
--- OUTSIDE RECORDS SUMMARY | 2022-02-19 11:01 | XMS_ITS | Encounter Summary ---
:1975 Author Organization [facility] [place] [address] Care Team Providers Name Role Phone Jewell Clark MD Primary Care Provider Encounter Details Date Type Department Care Team Description 07/02/2018 Multidisciplinary Care Urology Gisela Feldman Committee [facility] MD [facility] [phone] UROLOGY DEPT [phone] [place] [address] Social History Tobacco Use Types Packs/Day Years Used Date Never Smoker Smokeless Tobacco: Never Used Comments: marijuana only Sex Assigned at Date Recorded Not on file documented as of this encounter Progress Notes Gisela Feldman MD - 07/02/2018 4:47 PM EST - Tumor Board Note Date Presented: 07/02/2018 Presenting Physician: Yesenia Diagnosis/Tumor Site: Testis Is this Metastatic Disease: NA Synopsis of History/HPI: - right testicular mass, markers negative except LDH 251 - fam hx of testis cancer Imaging: - US 06/16/18: isoechoic mass w/ hyperechoic rim, emanating from the tunica, 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 Could consider a partial orchiectomy. Could doa frozen section. Recommendations: - observation reasonable, but low threshold for removal especially given patient preference. Partialwould be appropriate w/ frozen section intra-op. DISCLAIMER: The patient was discussed and the tumor board made recommendations but it is ultimately up to the treatment provider(s) and the patient to determine the patient???s care. documented in this encounter Plan of Treatment Not on filedocumented as of this encounter Visit Diagnoses Not on filedocumented in this encounter Care Teams Hand Trimmer Relationship Specialty Start Date End Date Jewell Clark MD PCP - General 07/17/10 09/06/18 [facility] CHILD ADVOCACY [facility] [place] [address] documented as of this encounter
--- OUTSIDE RECORDS SUMMARY | 2022-02-19 11:01 | XMS_ITS | Encounter Summary ---
:1975 Author Organization [facility] Address [address] [place] [address] Care Team Providers Name Role Phone None, Provider Primary Care Provider Unavailable Encounter Details Date Type Department Care Team Description 01/10/2018 Historical Results [facility] Brijesh Calloway Only [facility] [place] Resul rainer Raphael MD [address] [facility] [address] [place] [address] [place], [place] [phone] Social History Tobacco Use Types Packs/Day Years Used Date Never Assessed Sex Assigned at Date Recorded Not on file documented as of this encounter Plan of Treatment Not on filedocumented as of this encounter Procedures Procedure Name Priority Date/Time Associated Diagnosis Comme nts US SCROTUM WITH 01/10/2018 17:15 Results for this LIMITED DOPPLER EDT procedure ar e in the results section. documented in this encounter Results US SCROTUM WITH LIMITED DOPPLER (01/10/2018 17:15 EDT) Specimen Narrative [facility] - 01/10/2018 17:16 EDT ? EXAM: ULTRASOUND/TESTICULAR DOPPLER ? EX. D/ (1641) ? CLINICAL INFORMATION: ? LEFT TESTICULAR PAIN, SWELLING, ? TORSION ? EXAM: ? US Scrotum ? EXAM DATE/TIME: ? 01/10/2018 3:54 PM ? CLINICAL HISTORY: ? 42 years old, male; ??Left claus ticular pain, swelling, ? torsion ? TECHNIQUE: ? Real-time ultrasound of the sc rotum with color Doppler and ? image documentation. ??Grayscale and duplex Doppler with spectral ? analysis. ? COMPARISON: ? No relevant prior studies avai lable. ? FINDINGS: ? Right testicle: ??Unremarkable . ??No mass. ??No torsion. ??Normal ? low resistance monophasic wavefor m. ? Left testicle: ??Unremarkable. ??No mass. ??No torsion. ??Normal ? low resistance monophasic wavefor m. ? Epididymides: 8 mm epididymal head cyst on the left versus ? dilated appendage of no significa nce. ? Scrotum: Large left varicocele . ??Small bilateral hydroceles. ? IMPRESSION: ? No evidence for left-sided torsio n at the time of this ? examination although varicocele c an occasionally cause pain. ? REPORT SIGNED IN OTHER VENDOR SYSTEM 01/10/2018 ?Reported B y: Checo Centeno MD ? CC: ? Transcribed Date/Time: 01/10/2018 (1716) ? Warehouse Supervisor 3Rd Shift: ? Printed Date/Time: 02/12/2019 (13 22) ? PAGE 1 ? Abimbola d Report ? Procedure Note Checo Centeno MD - 07/01/2019 EXAM: ULTRASOUND/TESTICULAR DOPPLER EX. D/ (1641) CLINICAL INFORMATION: LEFT TESTICULAR PAIN, SWELLING, ?TORSIO N EXAM: US Scrotum EXAM DATE/TIME: 01/10/2018 3:54 PM CLINICAL HISTORY: 42 years old, male; Left testicular jaylin n, swelling, ? torsion TECHNIQUE: Real-time ultrasound of the scrotum wit h color Doppler and image documentation. Grayscale and dupl ex Doppler with spectral analysis. COMPARISON: No relevant prior studies available. FINDINGS: Right testicle: Unremarkable. No mass. No torsion. Normal low resistance monophasic waveform. Left testicle: Unremarkable. No mass. N o torsion. Normal low resistance monophasic waveform. Epididymides: 8 mm epididymal head cyst on the left versus dilated appendage of no significance. Scrotum: Large left varicocele. Small b ilateral hydroceles. IMPRESSION: No evidence for left-sided torsion at t he time of this examination although varicocele can occ asionally cause pain. REPORT SIGNED IN OTHER VENDOR SYSTEM 01/10/2018 Reported By: Checo Centeno MD CC: Transcribed Date/Time: 01/10/2018 (5268 ) Warehouse Supervisor 3Rd Shift: Printed Date/Time: 02/12/2019 (0338) PAGE 1 Signed Report Performing Organization Address City/State/ZIP Code Phon e Number [facility] documented in this encounter Visit Diagnoses Not on filedocumented in this encounter Care Teams Unattended Ground Sensor Specialist Relationship Specialty Start Date End Date None, Provider PCP - General 07/08/15 02/14/21 documented as of this encounter
--- OUTSIDE RECORDS SUMMARY | 2022-02-19 11:01 | XMS_ITS | Encounter Summary ---
:1975 Author Organization [facility] [place] [address] Care Team Providers Name Role Phone Jewell Clark MD Primary Care Provider Encounter Details Date Type Department Care Team Description 07/06/2018 Telephone Urology at [facility] Sania Patterson [place] [phone] UROLOGY DEPT [phone] [place], [place] [address] (Wo rk) Social History Tobacco Use Types Packs/Day Years Used Date Never Smoker Smokeless Tobacco: Never Used Comments: marijuana only Sex Assigned at Date Recorded Not on file documented as of this encounter Miscellaneous Notes Telephone Encounter - Sania Patterson MD - 07/06/2018 10:37 AM EST Mr Rojas has considered his options, and discussed this with his PCP. He has made a decision to monitor the testicular mass, and would like to schedule a repeat u/s and labs in 3 months. I will havethis scheduled, and I encouraged him to contact me back with any changes in the mass or if he wantedto proceed with surgery. documented in this encounter Plan of Treatment Not on filedocumented as of this encounter Results US Scrotum (09/07/2018 1:52 [...] 02:11 pm) PATIENT INFO: ID #: ? [id number] ?: ??[birth year] (42 yrs) Name: ? NETMARLENEHE JAREN ? Visit Date: 09/07/2018 01:52 pm PERFORMED BY: Performed By: ? Ranjit Lennon RDMS Attending: ?Esau LEBLANC, José Pereira. Referred By: ?SANIA PATTERSON Location: ? [place] SERVICE(S) PROVIDED: ??[facility] - Scrotum and Contents with Limit ed Vascular ?96211, [id number] ??evaluation - [id number] INDICATIONS: ??testicular mass COMPARISON: Ultrasound: OUTSIDE Scrotal [...] 09/07/2018 02:11 pm) PATIENT INFO: ID #: [id number] : [birth year] (42 y rs) Name: NETDAHE JAREN Visit Date: 08/25 01:52 pm PERFORMED BY: Performed By: Rnajit Lennon RDMS Attending: Khris Cifuentes MD Referred By: SANIA PATTERSON Location: [place] SERVICE(S) PROVIDED: [facility] - Scrotum and Contents with Limited Vascular [address]14, [address] evaluation - [id number] INDICATIONS: testicular mass COMPARISON: Ultrasound: OUTSIDE Scrotal [...] Sania Patterson MD IMG US GEN ORDERABLES AFP tumor marker (09/07/2018 12:44 PM EST) P athologist Signature AFP 7.6 <=8.3 ng/mL [facility] Specimen Anatomical Collection Method Collection Time Receive d Time (Source) Location / / Volume Laterality Blood specimen 09/07/2018 12:44 9 (specimen) PM EST 12:54 PM EST Resulting Agency Comment Spec In Lab Sania Patterson MD CHEMISTRY ORDERABLES Performing Organization Address City/State/ZIP Code Phon e [place] [address] (ABNORMAL) Lactate Dehydrogenase (09/07/2018 12:44 PM EST) P athologist Signature LDH 223 (H) 110 - 220 [place] unit/L [facility] Specimen Anatomical Collection Method Collection Time Receive d Time (Source) Location / / Volume Laterality Blood specimen 09/07/2018 12:44 9 (specimen) PM EST 12:54 PM EST Resulting Agency Comment Spec In Lab Sania Patterson MD CHEMISTRY ORDERABLES Performing Organization Address City/[facility]/ZIP Code Phon ary Felix [address] Beta HCG, quantitative (09/07/2018 12:44 PM EST) P athologist Signature Beta hCG Quant <1 0 - 2 [place] mlU/ML [facility] Comment: REFERENCE RANGES NON- FEMALE: ??Less [...] EST Resulting Agency Comment Spec In Lab Sania Patterson MD CHEMISTRY ORDERABLES Performing Organization Address City/State/ZIP Code Phon e Number [place] [phone] documented in this encounter Visit Diagnoses Diagnosis Testicular mass Other specified disorder of male genital organs Testicular mass Other specified disorder of male genital organs documented in this encounter Care Teams Scabbler Relationship Specialty Start Date End Date Jewell Clark MD PCP - General 07/17/10 09/06/18 [facility]ILD [facility] [place] [address] documented as of this encounter
--- OUTSIDE RECORDS SUMMARY | 2022-02-19 11:01 | XMS_ITS | Encounter Summary ---
:1975 Author Organization [facility] Address [address] [place] [address] Care Team Providers Name Role Phone None, Provider Primary Care Provider Unavailable Encounter Details Date Type Department Care Team Description 08/26/2016 Hospital Encounter [facility] - Unknown, Dewey watson [facility] [phone] [place] [address] (Work) [place] [address] Social History Tobacco Use Types Packs/Day Years Used Date Never Assessed Sex Assigned at Date Recorded Not on file documented as of this encounter Discharge Disposition Disposition Code Departure Means Destination Home or Self Long Term documented in this encounter Plan of Treatment Not on filedocumented as of this encounter Visit Diagnoses Not on filedocumented in this encounter Care Teams Diagnostic Tech Relationship Specialty Start Date End Date None, Provider PCP - General 07/08/15 02/14/21 documented as of this encounter
--- OUTSIDE RECORDS SUMMARY | 2022-02-19 11:01 | XMS_ITS | Encounter Summary ---
:1975 Author Organization [facility] Address [address] [place] [address] Care Team Providers Name Role Phone None, Provider Primary Care Provider Unavailable Lacey Newell TECHNICAL WRITER Primary Care Provider Encounter Details Date Type Department Care Team Description 01/17/2021 Results Only Imaging [facility] - Nikita Newell, [facility] Radiology Resul ts TECHNICAL WRITER [address] [place] [address] [place], [place] [address] Social History Tobacco Use Types Packs/Day Years Used Date Never Assessed Sex Assigned at Date Recorded Not on file documented as of this encounter Plan of Treatment Not on filedocumented as of this encounter Procedures Procedure Name Priority Date/Time Associated Diagnosis Comme nts US EXTREMITY SOFT 01/17/2021 18:00 Result s for this TISSUE OR MSK EDT procedure are in the results section. documented in this encounter Results US EXTREMITY SOFT TISSUE OR MSK (01/17/2021 18:00 EDT) Specimen Narrative [facility] - 01/17/2021 18:00 EDT ? AN ADDENDUM IS INCLUDED ON THIS REPORT ? ADDENDUM ? Studies performed on the right si de, not the left. ? PROCEDURE INFORMATION: ? Exam: US RIGHT Non-Vascular Joint or Other Extremity Structure ? Exam date and time: 01/17/2021 5:2 8 PM ? Age: 45 years old ? Clinical indication: Pain; Knee; Right; Additional info: M25.561 ? knee pain, right, right knee swel ling popliteal fossa, R/O, ? bakers cyst ? TECHNIQUE: ? Imaging protocol: RIGHT US joint or other nonvascular extremity ? structure or structures. Real-curt e ultrasound with image ? documentation. Limited study. Exa m focused on the lower ? extremity in the region of clinic al interest. ? COMPARISON: ? No relevant prior studies availab le. ? FINDINGS: ? Soft tissues: Right Dean's cyst 4.6 x 1.9 x 3.8 cm. ? IMPRESSION: ? Right Dean's cyst 4.6 x 1.9 x 3. 8 cm. ? ADDEND UM SIGNED IN OTHER VENDOR SYSTEM 01/17/2021 ?Reported B y: Angel Flores MD ?Transcribe d: 01/17/2021 (1801) HIS.VRAD ?REPORT ? EXAM: ULTRASOUND/EXTREMITIES LTD ?EX. D/ (1208) ? CLINICAL INFORMATION: ? M25.561 KNEE PAIN, RIGHT ? RIGHT KNEE SWELLING POPLITEAL FOS SA, R/O ? BAKERS CYST ? PROCEDURE INFORMATION: ? Exam: US Left Non-Vascular Joint or Other Extremity Structure ? Exam date and time: 01/17/2021 5:2 8 PM ? Age: 45 years old ? Clinical indication: Pain; Knee; Right; Additional info: M25.561 ? knee pain, right, right knee swel ling popliteal fossa, R/O, ? bakers cyst ? TECHNIQUE: ? Imaging protocol: Left US joint o r other nonvascular extremity ? structure or structures. Real-curt e ultrasound with image ? documentation. Limited study. Exa m focused on the lower ? extremity in the region of clinic al interest. ? COMPARISON: ? No relevant prior studies availab le. ? PAGE 1 ? Abimbola d Report ? (CONTINUED) ? AN ADDENDUM IS INC LUDED ON THIS REPORT ? FINDINGS: ? Soft tissues: Right Dean's cyst 4.6 x 1.9 x 3.8 cm. ? IMPRESSION: ? Right Dean's cyst 4.6 x 1.9 x 3. 8 cm. ? REPORT SIGNED IN OTHER VENDOR SYSTEM 01/17/2021 ?Reported B y: Angel Flores MD ? CC: ? Transcribed Date/Time: 01/17/2021 (1800) ? Continuity Person: ? Printed Date/Time: 01/17/2021 (18 ) ? PAGE 2 ? Abimbola d Report ? Procedure Note Angel Flores MD - 01/17/2021 AN ADDENDUM IS INCLUDED ON THIS REPO RT ADDENDUM Studies performed on the right side, no t the left. PROCEDURE INFORMATION: Exam: US RIGHT Non-Vascular Joint or Ot her Extremity Structure Exam date and time: 01/17/2021 5:28 PM Age: 45 years old Clinical indication: Pain; Knee; Right; Additional info: M25.561 knee pain, right, right knee swelling p opliteal fossa, R/O, bakers cyst TECHNIQUE: Imaging protocol: RIGHT US joint or oth er nonvascular extremity structure or structures. Real-time ultr asound with image documentation. Limited study. Exam focu sed on the lower extremity in the region of clinical int erest. COMPARISON: No relevant prior studies available. FINDINGS: Soft tissues: Right Dean's cyst 4.6 x 1.9 x 3.8 cm. IMPRESSION: Right Dean's cyst 4.6 x 1.9 x 3.8 cm. ADDENDUM SIGNED IN OTHER VENDOR SYS [facility] 01/17/2021 Reported By: Angel Flores MD Transcribed: 01/17/2021 (1801) HIS.KAVYA REPORT EXAM: ULTRASOUND/EXTREMITIES LTD EX. D/ (1728) CLINICAL INFORMATION: M25.561 KNEE PAIN, RIGHT RIGHT KNEE SWELLING POPLITEAL FOSSA, R/ O BAKERS CYST PROCEDURE INFORMATION: Exam: US Left Non-Vascular Joint or Oth er Extremity Structure Exam date and time: 01/17/2021 5:28 PM Age: 45 years old Clinical indication: Pain; Knee; Right; Additional info: M25.561 knee pain, right, right knee swelling p opliteal fossa, R/O, bakers cyst TECHNIQUE: Imaging protocol: Left US joint or othe r nonvascular extremity structure or structures. Real-time ultr asound with image documentation. Limited study. Exam focu sed on the lower extremity in the region of clinical int erest. COMPARISON: No relevant prior studies available. PAGE 1 Signed Report (CONTINUED) AN ADDENDUM IS INCLUDED ON THIS REPO RT FINDINGS: Soft tissues: Right Dean's cyst 4.6 x 1.9 x 3.8 cm. IMPRESSION: Right Dean's cyst 4.6 x 1.9 x 3.8 cm. REPORT SIGNED IN OTHER VENDOR SYSTEM 01/17/2021 Reported By: Angel Flores MD CC: Transcribed Date/Time: 01/17/2021 (1800 ) Continuity Person: Printed Date/Time: 01/17/2021 (180) PAGE 2 Signed Report Performing Organization Address City/State/ZIP Code Phon e Number [facility] documented in this encounter Visit Diagnoses Not on filedocumented in this encounter Care Teams Academic Specialist Relationship Specialty Start Date End Date None, Provider PCP - General 07/08/15 02/14/21 Lacey Newell NP PCP - General 02/15/21 [address] [place] [address] documented as of this encounter
--- OUTSIDE RECORDS SUMMARY | 2022-02-19 11:01 | XMS_ITS | Encounter Summary ---
:1975 [place] [address] Care Team Providers Name Role Phone Jewell Clark MD Primary Care Provider Encounter Details Date Type Department Care Team Description 06/24/2018 Laboratory Appointment Lab 3L [facility] [place] [address] Social History Tobacco Use Types Packs/Day Years Used Date Never Smoker Smokeless Tobacco: Never Used Comments: marijuana only Sex Assigned at Date Recorded Not on file documented as of this encounter Plan of Treatment Not on filedocumented as of this encounter Procedures Procedure Name Priority Date/Time Associated Comments Diagnosis LACTATE DEHYDROGENASE Routine 06/24/2018 3:01 PM Results for this EDT procedure are i n the results section. AFP TUMOR MARKER STAT 06/24/2018 2:48 PM Testicular mass Re sults for this EDT procedure are i n the results section. BETA HCG, QUANTITATIVE STAT 06/24/2018 2:48 PM Testicular m ass Results for this EDT procedure are i n the results section. COMPREHENSIVE Routine 06/24/2018 2:48 PM Testicular mass Resul ts for this METABOLIC PANEL EDT procedure ar e in (NON-FASTING) the results section. documented in this encounter Results (ABNORMAL) Lactate Dehydrogenase (06/24/2018 3:01 PM EDT) P athologist Signature LDH 251 (H) 110 - 220 [facility] unit/L [facility] Specimen Anatomical Collection Method Collection Time Receive d Time (Source) Location / / Volume Laterality Blood specimen Venous Draw / 06/24/2018 3:01 PM 2017 3:14 (specimen) Unknown EDT PM EDT Resulting Agency Comment Spec In Lab Kami Bedolla [place] CERTIFIED MASTER SAFE TECHNICIAN CHEMISTRY ORDERABLES Performing Organization Address City/State/ZIP Code Phon e Number [facility] [place] [id number] Beta HCG, quantitative (06/24/2018 2:48 PM EDT) P athologist Signature Beta hCG Quant <1 0 - 2 [facility] mlU/ML [facility] Comment: REFERENCE RANGES NON- FEMALE: ??Less [...] - 56,451 ?17 weeks ? 8,175 - 72,868 ?18 weeks ? 8,099 - 71,176 Specimen Anatomical Collection Method Collection Time Receive d Time (Source) Location / / Volume Laterality Blood specimen 06/24/2018 2:48 PM 018 3:03 (specimen) EDT PM EDT Resulting Agency Comment Spec In Lab Kami Carpenter APRN CHEMISTRY ORDERABLES Performing Organization Address City/State/[place] [address] AFP tumor marker (06/24/2018 2:48 PM EDT) P athologist Signature AFP 6.5 <=8.3 ng/mL [facility] Specimen Anatomical Collection Method Collection Time Receive d Time (Source) Location / / Volume Laterality Blood specimen 06/24/2018 2:48 PM 018 3:03 (specimen) EDT PM EDT Resulting Agency Comment Spec In Lab Kami Carpenter DOLORES CHEMISTRY ORDERABLES Performing Organization Address City/State/[place] [address] (ABNORMAL) Comprehensive metabolic panel (non-fasting) (06/24/2018 2:48 PM EDT) P athologist Signature Glucose Lvl 75 65 - 199 [facility] mg/dL [facility] Comment: Diabetes: >=200 mg/dL plus symp toms BUN 21 (H) 10 - 20 mg/dL [facility] Creatinine 0.93 0.80 - 1.50 mg/dL [facility] Sodium 148 (H) 135 - 145 mmol/L [facility] Potassium 4.2 3.5 - 5.0 mmol/L [facility] Comment: Please note: ??Patients with WBC >100,00 0 may have falsely elevated Potassium levels. ??For accurate Potassium quantif ication in these patients send serum separator tube (gold top) for subsequent determinations. ??Contact the Clinical Chemistry Laboratory if there are any qu estions. Chloride 108 (H) 98 - 107 mmol/L [facility] CO2 23 22 - 31 mmol/L [facility] Anion Gap 17 (H) 5 - 15 mmol/L [facility] Calcium 9.3 8.5 - 10.5 mg/dL [facility] Total Protein 6.9 6.1 - 8.0 gm/dL [facility] Albumin 4.4 3.2 - 5.2 gm/dL [facility] AST 39 0 - 39 unit/L [facility] ALT 26 0 - 55 unit/L [facility] Alk Phos 87 40 - 120 unit/L [facility] Total Bilirubin 0.2 0.2 - 1.3 mg/dL [facility] Estimated GFR 102 >=60 mL/min/1.73 m?? [facility] Comment: The eGFR was calculated using the CKD-EP I equation. As with all creatinine based estimates of kidney function, eGFR values calculated with the CKD-EPI equation are not accurate in patients wi th acute kidney failure, extremes of body mass or the acutely ill. [email or web address] [place] eGFR 118 >=60 mL/min/1.73 m?? [facility] Comment: The eGFR was calculated using the CKD-EP I equation. As with all creatinine based estimates of kidney function, eGFR values calculated with the CKD-EPI equation are not accurate in patients wi th acute kidney failure, extremes of body mass or the acutely ill. [email or web address] [place] Specimen Anatomical Collection Method Collection Time Receive d Time (Source) Location / / Volume Laterality Blood specimen 06/24/2018 2:48 PM 018 3:03 (specimen) EDT PM EDT Resulting Agency Comment Spec In Lab Kami Carpenter APRN CHEMISTRY ORDERABLES Performing Organization Address City/State/[place] [address] documented in this encounter Visit Diagnoses Diagnosis Testicular mass Other specified disorder of male genital organs documented in this encounter Care Teams Psychiatrist Relationship Specialty Start Date End Date Jewell Clark MD PCP - General 07/17/10 09/06/18 [facility] [place] [address] documented as of this encounter
--- OUTSIDE RECORDS SUMMARY | 2022-02-19 11:01 | XMS_ITS | Encounter Summary ---
:1975 Author Organization [place] [address] Care Team Providers Name Role Phone Jewell Clark MD Primary Care Provider Reason for Visit Reason Comments Testicular Mass Consultation (Routine) - Specialty Diagnoses / Procedures Referred By Contact Refer red To Contact Urology Diagnoses Testicular Mass Lacey Newell APRN [facility] [address] [place] [address] [place] [address] Fax: Referral ID Status Reason Start Date Expiration Date Visits V isits Requested Authorized [id number] Consult, Test 06/17/2018 06/17/2019 6 6 & Treat PCP Updated and/or Approved Encounter Details Date Type Department Care Team Description 06/24/2018 Office Visit Urology at [facility] Neri Patterson MD Testis mass [facility] [place] [address] UROLOGY DEPT [phone] [place], [place] [address] (Wo rk) Social History Tobacco Use Types Packs/Day Years Used Date Never Smoker Smokeless Tobacco: Never Used Comments: marijuana only Sex Assigned at Date Recorded Not on file documented as of this encounter Last Filed Vital Signs Vital Sign Reading Time Taken Comments Blood Pressure 128/81 06/24/2018 3:41 PM EDT Pulse 54 06/24/2018 3:41 PM EDT Temperature - - Respiratory Rate - - Oxygen Saturation 98% 06/24/2018 3:41 PM EDT Inhaled Oxygen Concentration - - Weight - - Height - - Body Mass Index - - documented in this encounter Progress Notes Neri Patterson MD - 06/24/2018 4:20 PM EDT UROLOGY NEW PATIENT VISIT CC: right testis mass HPI: 42 yo male referred here for an evaluation of a newly diagnosed right testicular mass. He firstfelt it ~ 2 weeks ago, and is not sure if it has grown. He denies any pain, but it has caused some discomfort, increased sensitivity. He denies any hematuria or dysuria. He is otherwise healthy. His father had testis cancer. History reviewed. No pertinent past medical history. Past Surgical History: Procedure Laterality Date ??? [...] of Onset ??? Cancer Father testis cancer , avid runner, 1 child, works as a track/field motorcoach operator ROS: General Health: GENERAL: Denies fevers, sweats, chills, anorexia, denies weight changes. RF MANAGER: Denies loss of consciousness, denies balance difficulty, denies pins/needle sensations. HEENT: Denies headaches and vision changes. RESP: Denies cough or breathing difficulties. CVS: Denies chest pain and MADRID. No claudication. GI: Denies nausea/vomiting/diarrhea/constipation. Normal appetite and bowels. : see hpi MUSCULOSKELETAL: Denies joint or muscle aches. Denies back pain. SKIN: Denies rashes. HEME: Denies bleeding tendencies, bruisability. EXAMINATION: Most Recent Vitals: 06/24/18 1541 BP: 128/81 Pulse: 54 SpO2: 98% GENERAL: Well appearing male in NAD. Healthy appearance. HEENT: Atraumatic, normocephalic. Anicteric sclera. MMM. NECK: Supple with no significant lymphadenopathy. RESPIRATORY: Unlabored respirations with no audible wheezing. CARDIAC: Regular rhythm with no audible MGR. ABDOMEN: Benign without masses. No rebound or guarding. BACK: No CVA tenderness GENITALIA: Scrotum - Color and texture normal; no masses. Testicles and epididymides - No tenderness. There is a firm ~5mm right sided upper pole mass which is attached to the testicle. The left testicle is normal Penis - normal appearing with orthotopic meatus; no masses or surface lesions. NEUROLOGIC: Alert and oriented x 3. EXTREMITIES: Warm and well perfused with no pitting edema. LABS:Results for JOSE MARTIN ROJAS ( ) as of 06/25/2018 08:50 Ref. Range 06/24/2018 14:48 06/24/2018 15:01 Sodium Latest Ref Range: 135 - 145 mmol/L 148 (H) Potassium Latest Ref Range: 3.5 - 5.0 mmol/L 4.2 Chloride Latest Ref Range: 98 - 107 mmol/L 108 (H) CO2 Latest Ref Range: 22 - 31 mmol/L 23 Anion Gap Latest Ref Range: 5 - 15 mmol/L 17 (H) BUN Latest Ref Range: 10 - 20 mg/dL 21 (H) Creatinine Latest Ref Range: 0.80 - 1.50 mg/dL 0.93 eGFR Latest Ref Range: >=60 mL/min/1.73 m?? 102 eGFR Latest Ref Range: >=60 mL/min/1.73 m?? 118 Glucose Lvl Latest Ref Range: 65 - 199 mg/dL 75 Calcium Latest Ref Range: 8.5 - 10.5 mg/dL 9.3 Total Protein Latest Ref Range: 6.1 - 8.0 gm/dL 6.9 Albumin Latest Ref Range: 3.2 - 5.2 gm/dL 4.4 Total Bilirubin Latest Ref Range: 0.2 - 1.3 mg/dL 0.2 Alk Phos Latest Ref Range: 40 - 120 unit/L 87 AST Latest Ref Range: 0 - 39 unit/L 39 ALT Latest Ref Range: 0 - 55 unit/L 26 LDH Latest Ref Range: 110 - 220 unit/L 251 (H) AFP Latest Ref Range: <=8.3 ng/mL 6.5 Beta hCG Quant Latest Ref Range: 0 - 2 mlU/ML <1 IMAGING: scrotal u/s showing 0.7 by 0.7 by 0.5cm right testicular mass, which may be arising from the tunica albuginea, although testis mass cannot be excluded. 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 I discussed the findings with the patient and explained to him that I'd present his case at tumor board. His options include active surveillance with repeat imaging, or surgical intervention (radical vs partial orchiectomy and possible intraoperative frozen section). documented in this encounter Plan of Treatment Not on filedocumented as of this encounter Visit Diagnoses Diagnosis Testis mass Other specified disorder of male genital organs documented in this encounter Care Teams Specimen Technician Relationship Specialty Start Date End Date Jewell Clark MD PCP - General 07/17/10 09/06/18 [facility] [place] [address] documented as of this encounter
--- OUTSIDE RECORDS SUMMARY | 2022-02-19 11:01 | XMS_ITS | Encounter Summary ---
:1975 Author Organization [facility] Address [address] [place] [address] Care Team Providers Name Role Phone Lacey Newell Sidra RADIO MECHANIC HELPER Primary Care Provider Encounter Details Date Type Department Care Team Description 03/22/2021 Results Only Imaging [facility] - Maya Wang [facility] Radiology Resul ts MD Cheli [address] [place] [address] [place] [address] (Wo rk) Social History Tobacco Use Types [...] / COVID-19? documented as of this encounter Plan of Treatment Not on filedocumented as of this encounter Procedures Procedure Name Priority Date/Time Associated Diagnosis Comme nts MR KNEE WO CONTRAST 03/22/2021 11:20 Resu lts for this RIGHT EDT procedure are i n the results section. XR ORBITS PRE MRI 03/22/2021 10:06 Result s for this SCREENING EDT procedure are i n the results section. documented in this encounter Results MR KNEE WO CONTRAST RIGHT (03/22/2021 11:20 EDT) Specimen Narrative [facility] - 03/22/2021 11:20 EDT ? EXAM: MAGNETIC RESONANCE IMAGING/KNEE RT ??EX. D/ (1051) ? CLINICAL INFORMATION: ? M25.561 CHRONIC PAIN OF RIGHT KNE E ? MENISCAL TEAR VS INTERNAL DERANGE MENT VS ? DEAN'S CYST ? KNEE RT W/O CONTRAST ? Signs and Symptoms/Comments: M25. 561 CHRONIC PAIN OF RIGHT KNEE, ? MENISCAL TEAR VS INTERNAL DERANGE MENT VS DEAN'S CYST ? Comparison: Radiographs on 02/28/20 21. ? Technique: Noncontrast MR of the right knee was performed with the ? following sequences: Axial T1, ax ial proton density fat sat, sagittal ? proton density, sagittal T2 fat s at, coronal proton density, coronal ? proton density fat-sat. ? FINDINGS: ? Medial Meniscus: Mild medial meni scal mucoid degeneration is present ? with a possible subtle oblique te ar at the body-posterior horn ? junction (sagittal series 8 image 23; coronal series 7 image 19). The ? meniscal root ligaments are intac t. ? Lateral Meniscus: The lateral men iscus and meniscal root ligaments ? are intact. ? Medial Supporting Structures: The superficial and deep MCL are ? intact. ? Lateral Supporting Structures: Th e iliotibial band, FCL, biceps ? femoris and popliteus tendons are intact. ? Cruciate Ligaments: The anterior and posterior cruciate ligaments are ? intact. ? Extensor Mechanism: The extensor mechanism of the knee is intact. ? Cartilage: Mild-moderate chondral thinning and partial-thickness ? fissuring are present along the m edian patellar ridge (axial series 4 ? image 22; sagittal series 9 image 17). The chondral surfaces in the ? tibiofemoral compartments are pre served. ? Bone Marrow: No fracture, bone ma rrow contusion or avascular necrosis ? is identified. ? Joint Space: No joint effusion is present. No definite ? intra-articular bodies are identi fied. ? Supporting Soft Tissues: A promin ent multiloculated Dean's cyst ? measures 7.2 x 2.6 x 4.2 cm (sagi ttal series 9 image 21; axial series ? 4 image 20). ? IMPRESSION: ? PAGE 1 ? Abimbola d Report ? (CONTINUED) ? 1. ??Multiloculated 7 cm Dean's cyst. ? 2. ??Mild medial meniscal mucoid degeneration, with a possible subtle ? tear at the body-posterior horn j unction. ? 3. ??Cruciate ligaments, medial a nd lateral supporting structures ? intact. ? 4. ??Mild-moderate chondral thinn ing and partial-thickness fissuring ? along the median patellar ridge. ? 5. ??No fracture, bone marrow con tusion or avascular necrosis ? identified. ? REPORT SIGNED IN OTHER VENDOR SYSTEM 03/22/2021 ?Reported B y: Danilo Donis MD ? CC: Maya Wang MD ? Transcribed Date/Time: 03/22/2021 (1120) ? Shop Hand: HIS.[email or web address] ? Printed Date/Time: 03/22/2021 (11 20) ? PAGE 2 ? Abimbola d Report ? Procedure Note Danilo Donis MD - 03/22/2021 EXAM: MAGNETIC RESONANCE IMAGING/KNEE R T EX. D/ (1051) CLINICAL INFORMATION: M25.561 CHRONIC PAIN OF RIGHT KNEE MENISCAL TEAR VS INTERNAL DERANGEMENT V S DEAN'S CYST KNEE RT W/O CONTRAST Signs and Symptoms/Comments: M25.561 CH RONIC PAIN OF RIGHT KNEE, MENISCAL TEAR VS INTERNAL DERANGEMENT V S DEAN'S CYST Comparison: Radiographs on 02/27/2021. Technique: Noncontrast MR of the right knee was performed with the following sequences: Axial T1, axial pr oton density fat sat, sagittal proton density, sagittal T2 fat sat, co ayaan proton density, coronal proton density fat-sat. FINDINGS: Medial Meniscus: Mild medial meniscal m ucoid degeneration is present with a possible subtle oblique tear at the body-posterior horn junction (sagittal series 8 image 23; c oronal series 7 image 19). The meniscal root ligaments are intact. Lateral Meniscus: The lateral meniscus and meniscal root ligaments are intact. Medial Supporting Structures: The super ficial and deep MCL are intact. Lateral Supporting Structures: The ilio tibial band, FCL, biceps femoris and popliteus tendons are intac t. Cruciate Ligaments: The anterior and po sterior cruciate ligaments are intact. Extensor Mechanism: The extensor mechan ism of the knee is intact. Cartilage: Mild-moderate chondral thinn ing and partial-thickness fissuring are present along the median patellar ridge (axial series 4 image 22; sagittal series 9 image 17). The chondral surfaces in the tibiofemoral compartments are preserved . Bone Marrow: No fracture, bone marrow c ontusion or avascular necrosis is identified. Joint Space: No joint effusion is prese nt. No definite intra-articular bodies are identified. Supporting Soft Tissues: A prominent mu ltiloculated Dean's cyst measures 7.2 x 2.6 x 4.2 cm (sagittal s eries 9 image 21; axial series 4 image 20). IMPRESSION: PAGE 1 Signed Report (CONTINUED) 1. Multiloculated 7 cm Dean's cyst. 2. Mild medial meniscal mucoid degenera tion, with a possible subtle tear at the body-posterior horn junctio n. 3. Cruciate ligaments, medial and later al supporting structures intact. 4. Mild-moderate chondral thinning and partial-thickness fissuring along the median patellar ridge. 5. No fracture, bone marrow contusion o r avascular necrosis identified. REPORT SIGNED IN OTHER VENDOR SYSTEM 03/22/2021 Reported By: Danilo Donis MD CC: Maya Wang MD Transcribed Date/Time: 03/22/2021 (5710 ) Shop Hand: Printed Date/Time: 03/22/2021 (1120) PAGE 2 Signed Report Performing Organization Address City/State/ZIP Code Phon e Number [facility] XR ORBITS PRE MRI SCREENING (03/22/2021 10:06 EDT) Specimen Narrative [facility] - 03/22/2021 10:06 EDT ? EXAM: RADIOLOGY/ORBITS PRE MRI SCREENING ??EX. D/ (0954) ? CLINICAL INFORMATION: ? HX OF METAL INJURY TO EYES, PRE M RI SCREENING ? INDICATION: HX OF METAL INJURY TO EYES, PRE MRI SCREENING CHORNIC ? PAIN OF RIGHT KNEE ? TECHNIQUE: 2 views of the orbits were obtained. ? COMPARISON: None. ? FINDINGS: No metallic foreign bod y is detected in the region of the ? orbits. The paranasal sinuses refugio ear unremarkable. ? IMPRESSION: ? No metallic foreign body within t he orbits detected. ? REPORT SIGNED IN OTHER VENDOR SYSTEM 03/22/2021 ?Reported B y: Alvin Hale MD ? CC: Maya Wang MD ? Transcribed Date/Time: 03/22/2021 (1006) ? Shop Hand: ? Printed Date/Time: 03/22/2021 ( 06) ? PAGE 1 ? Abimbola d Report ? Procedure Note Alvin Hale MD - 03/22/2021 EXAM: RADIOLOGY/ORBITS PRE MRI SCREENIN G EX. D/ (0954) CLINICAL INFORMATION: HX OF METAL INJURY TO EYES, PRE MRI SCR EENING INDICATION: HX OF METAL INJURY TO EYES, PRE MRI SCREENING CHORNIC PAIN OF RIGHT KNEE TECHNIQUE: 2 views of the orbits were o btained. COMPARISON: None. FINDINGS: No metallic foreign body is d etected in the region of the orbits. The paranasal sinuses appear un remarkable. IMPRESSION: No metallic foreign body within the orb its detected. REPORT SIGNED IN OTHER VENDOR SYSTEM 03/22/2021 Reported By: Alvin Hale MD CC: Maay Wang MD Transcribed Date/Time: 03/22/2021 (1006 ) Shop Hand: Printed Date/Time: 03/22/2021 (1006) PAGE 1 Signed Report Performing Organization Address City/State/ZIP Code Phon e Number [facility] documented in this encounter Visit Diagnoses Not on filedocumented in this encounter Care Teams Records Clerk Relationship Specialty Start Date End Date Lacey Newell, CHUCKY PCP - General 02/15/21 [address] [place] [address] documented as of this encounter
--- OUTSIDE RECORDS SUMMARY | 2022-02-19 11:01 | XMS_ITS | Encounter Summary ---
:1975 Author Organization [facility] Address [address] [place] [address] Care Team Providers Name Role Phone None, Provider Primary Care Provider Unavailable Encounter Details Date Type Department Care Team Description 08/26/2016 Historical Results Only [facility] - Silvino Davidson [facility] Radiology Resul ts [address] [place] [address] [place], [place] [address] Social History Tobacco Use Types Packs/Day Years Used Date Never Assessed Sex Assigned at Date Recorded Not on file documented as of this encounter Plan of Treatment Not on filedocumented as of this encounter Procedures Procedure Name Priority Date/Time Associated Comments Diagnosis XR CHEST 2 VIEWS 08/26/2016 13:54 Results for this EST procedure are i n the results section. CT CERVICAL SPINE WO 08/26/2016 13:51 Res ults for this CONTRAST EST procedure are i n the results section. COMPLETE BLOOD COUNT Routine 08/26/2016 13:15 Res ults for this WITH DIFFERENTIAL EST procedure are in (AUTO) the results section. C REACTIVE PROTEIN Routine 08/26/2016 13:15 Resul ts for this EST procedure are i n the results section. COMPREHENSIVE Routine 08/26/2016 13:15 Results fo r this METABOLIC PANEL (CMP) EST proced ure are in the results section. documented in this encounter Results XR CHEST 2 VIEWS (08/26/2016 13:54 EST) Specimen Narrative [facility] - 08/26/2016 13:54 EST ? EXAM: RADIOLOGY/CHEST (PA ?? LAT) ?EX. D/ (1315) ? CLINICAL INFORMATION: ? PRE-OP CHEST MURMER VASOVAGAL ? EXAM: ? XR Chest, 2 Views. ? CLINICAL HISTORY: ? The patient is a 40 years ??ma le; Signs and symptoms; Other: ? Murmer, vasovagal; Additional inf o: Pre-op chest murmer vasovagal ? TECHNIQUE: ? Frontal and lateral views of t he chest. ? EXAM DATE/TIME: ? 08/26/2016 12:57 PM ? COMPARISON: ? No relevant prior studies avai lable. ? FINDINGS: ? Lungs: ??Unremarkable. ??No co nsolidation. ? Pleural spaces: ??Unremarkable . ??No pneumothorax. ? Heart: ??Unremarkable. ??No ca rdiomegaly. ? Mediastinum: ??Unremarkable. ? Bones/joints: ??Unremarkable. ??No acute fracture. ? IMPRESSION: ? Normal chest. ? REPORT SIGNED IN OTHER VENDOR SYSTEM 08/26/2016 ?Reported B y: Nayla Perkins MD ? CC: ? Transcribed Date/Time: 08/26/2016 (1354) ? Javascript Web Developer: ? Printed Date/Time: 02/06/2019 (00 35) ? PAGE 1 ? Abimbola d Report ? Procedure Note Nayla Perkins - 06/30/2019 EXAM: RADIOLOGY/CHEST (PA LAT) EX. D/ (5435) CLINICAL INFORMATION: PRE-OP CHEST MURMER VASOVAGAL EXAM: XR Chest, 2 Views. CLINICAL HISTORY: The patient is a 40 years male; Signs a nd symptoms; Other: Murmer, vasovagal; Additional info: Pre -op chest murmer vasovagal TECHNIQUE: Frontal and lateral views of the chest. EXAM DATE/TIME: 08/26/2016 12:57 PM COMPARISON: No relevant prior studies available. FINDINGS: Lungs: Unremarkable. No consolidation. Pleural spaces: Unremarkable. No pneumo thorax. Heart: Unremarkable. No cardiomegaly. Mediastinum: Unremarkable. Bones/joints: Unremarkable. No acute fr acture. IMPRESSION: Normal chest. REPORT SIGNED IN OTHER VENDOR SYSTEM 08/26/2016 Reported By: Nayla Perkins MD CC: Transcribed Date/Time: 08/26/2016 (0029 ) Javascript Web Developer: Printed Date/Time: 02/06/2019 (2396) PAGE 1 Signed Report Performing Organization Address City/State/ZIP Code Phon e Number [facility] RADI[facility] CT CERVICAL SPINE WO CONTRAST (08/26/2016 13:51 EST) Specimen Narrative [facility] - 08/26/2016 13:51 EST ? EXAM: CAT SCAN/CERVICAL SPINE WITHOUT CON EX. D/ (7500) ? CLINICAL INFORMATION: ? ACUTE CERVICAL INJURY ? EXAM: ? CT Cervical Spine Without Intr avenous Contrast. ? CLINICAL HISTORY: ? The patient is a 40 years ??ma le; Signs and symptoms; Other: ? Unknown; Additional info: Acute c ervical injury ? TECHNIQUE: ? Axial computed tomography imag es of the cervical spine without ? intravenous contrast. ??This CT e xam was performed using one or ? more of the following dose reduct ion techniques: ??automated ? exposure control, adjustment of t he mA and/or kV according to ? patient size, and/or use of itera tive reconstruction technique. ? EXAM DATE/TIME: ? 08/26/2016 12:57 PM ? COMPARISON: ? No relevant prior studies palomo lable. ? FINDINGS: ? Vertebrae: ??No acute fracture .There is no evidence of ? malalignment or dislocation. ? Discs/spinal canal/neural fora monique: ??Disc spaces are intact. ? No spinal canal stenosis. ? Thyroid: ??The thyroid gland i s normal. ? Soft tissues: ??The prevertebr al soft tissues are normal. ? Lung apices: ??Unremarkable as visualized. ? IMPRESSION: ? No evidence of fracture or dis location. ? Remainder of non-emergent finding s as described above. ? REPORT SIGNED IN OTHER VENDOR SYSTEM 08/26/2016 ?Reported B y: Nayla Perkins MD ? CC: ? Transcribed Date/Time: 08/26/2016 (1351) ? Javascript Web Developer: .VRAD ? Printed Date/Time: 02/06/2019 (00 35) ? PAGE 1 ? Abimbola d Report ? Procedure Note Nayla Perkins - 06/30/2019 EXAM: CAT SCAN/CERVICAL SPINE WITHOUT C ON EX. D/ (1310) CLINICAL INFORMATION: ACUTE CERVICAL INJURY EXAM: CT Cervical Spine Without Intravenous C ontrast. CLINICAL HISTORY: The patient is a 40 years male; Signs a nd symptoms; Other: Unknown; Additional info: Acute cervica l injury TECHNIQUE: Axial computed tomography images of the cervical spine without intravenous contrast. This CT exam was performed using one or more of the following dose reduction te chniques: automated exposure control, adjustment of the mA and/or kV according to patient size, and/or use of iterative r econstruction technique. EXAM DATE/TIME: 08/26/2016 12:57 PM COMPARISON: No relevant prior studies available. FINDINGS: Vertebrae: No acute fracture.There is n o evidence of malalignment or dislocation. Discs/spinal canal/neural foramina: Dis c spaces are intact. No spinal canal stenosis. Thyroid: The thyroid gland is normal. Soft tissues: The prevertebral soft tis sues are normal. Lung apices: Unremarkable as visualized . IMPRESSION: No evidence of fracture or dislocation. Remainder of non-emergent findings as d escribed above. REPORT SIGNED IN OTHER VENDOR SYSTEM 08/26/2016 Reported By: Nayla Perkins MD CC: Transcribed Date/Time: 08/26/2016 (1351 ) Javascript Web Developer: Printed Date/Time: 02/06/2019 (0034) PAGE 1 Signed Report Performing Organization Address City/State/ZIP Code Phon e Number [facility] (ABNORMAL) C REACTIVE PROTEIN (08/26/2016 13:15 EST) Pathologist Sig nature C-Reactive Protein 35.3 (H) 0.0 - 3.0 mg/L [facility] Specimen Narrative [facility] - 017 13:53 EST Does PT Have a Latex Allergy? NO Performing Organization Address City/State/ZIP Code Phon e Number [facility] [address] [place], [place] [id number] [place] [address] LAB (ABNORMAL) COMPREHENSIVE METABOLIC PANEL (CMP) (08/26/2016 13:15 EST) ALBUMIN - [facility] 4.2 3.4 - 5.0 [facility] g/dL [facility] ALKALINE 72 42 - 122 U/L [facility] PHOSPHATASE - [facility] BILIRUBIN TOTAL 1.0 0.0 - 1.0 [facility] mg/dL MED CENTER LAB BUN - [facility] 23 (H) 7 - 18 mg/dL [facility] CALCIUM - [facility] 8.7 8.5 - 10.1 [facility] mg/dL [facility] Chloride 107 98 - 107 [facility] mEq/L [facility] CO2 Total 28 21 - 32 mEq/L [facility] CREATININE 0.93 0.5 - 1.3 [facility] mg/dL [facility] eGFR >60 [facility] Comment: [facility] Chronic renal impairment is defined as GFR <60 Multiply result by 1.210 for patients . Anion Gap 7 5 - [address] [facility] GLUCOSE - [facility] 129 (H) 70 - 100 [facility] mg/dL [facility] Potassium 3.8 3.5 - 5.0 [facility] mEq/L [facility] Sodium 142 135 - 145 [facility] mEq/L [facility] TOTAL PROTEIN - 7.1 6.4 - 8.2 [facility] gm/dl [facility] SGOT/AST - [facility] 34 10 - 37 U/L [facility] SGPT/ALT - [facility] 38 12 - 78 U/L [facility] Specimen Narrative [facility] - 017 13:53 EST Does PT Have a Latex Allergy? NO Performing Organization Address City/State/ZIP Code Phon e Number [facility] [address] LAB (ABNORMAL) COMPLETE BLOOD COUNT WITH DIFFERENTIAL (AUTO) (08/26/2016 13:15 EST) Pathologist Sig nature ABSOLUTE NEUTROPHIL 7.93 (H) 1.7 - 7.0 [facility] MED COUN - [facility] 10e3/ul CENTER LAB BASO # - [facility] 0.02 0.0 - 0.3 [facility] 10e3/uL CENTER LAB BASO % - [facility] 0 0 - 2 % [facility] EOS # - [facility] 0.01 (L) 0.05 - 0.5 [facility] 10e3/uL CENTER LAB EOS % - CV 0 0 - 5 % [facility] GRAN % - [facility] 91 (H) 40 - 80 % [facility] HEMATOCRIT - [facility] 44.9 36.0 - 52.0 % [facility] HEMOGLOBIN - [facility] 16.2 13.7 - 17.5 [facility] g/dl [facility] IG# - [facility] 0.02 0 - [address].07 [facility] 10e3/uL [facility] IG% - [facility] 0.2 0 - 0.9 % [facility] LYMPH # - [facility] 0.47 (L) 0.9 - 2.9 [facility] 10e3/uL [facility] LYMPH% - [facility] 5 (L) 20 - 40 % [facility] MEAN CORPUSCULAR HGB 32.0 26 - [address] [facility] MEAN CORPUSCULAR HGB 36.1 (H) 31 - 36 g/dL [facility] CONC [facility] MEAN CELL VOLUME - 88.7 77 - [address] [facility] MONO # - [facility] 0.32 0.3 - 0.9 [facility] 10e3/uL [facility] MONO% - [facility] 4 0 - 12 % [facility] PLATELET COUNT 158 150 - 400 [facility] 10e3/ul [facility] RED BLOOD COUNT - 5.06 4.3 - 5.7 [facility] 10e6/ul [facility] RED CELL DISTRI WIDTH 12.1 11.8 - 15.6 % [facility] ME D - [facility] WHITE BLOOD COUNT - 8.8 3.5 - 10.5 [facility] 10e3/ul [facility] Specimen Narrative [facility] - 017 13:27 EST Does PT Have a Latex Allergy? NO Performing Organization Address City/State/ZIP Code Phon e Number [facility] [address] [place], [place] [id number] [place] [address] LAB documented in this encounter Visit Diagnoses Not on filedocumented in this encounter Care Teams Filler Shaker Relationship Specialty Start Date End Date None, Provider PCP - General 07/08/15 02/14/21 documented as of this encounter
== END 2022-02-19 10:54 | disposition home or self-care (01) ==
LOC: NCHCN 10:53
PROVIDERS: PCP Nurse Practitioner Family; Visit Provider Nurse Practitioner Family
DX: D22.5 Melanocytic nevi of trunk (principal)
CPT/HCPCS: 88305

== ENCOUNTER 2025-02-01 18:06 | Outpatient (REF) | payer OTHER, SELFPAY ==
[2025-02-01 21:37] LABS: HCT 42.8 % (40.0-50.0); MCH 31.6 pg (27.0-33.0); MCV 90 fL (80-95); MPV 10.3 fL (8.0-11.0); Platelet Count 135 10^3/uL (130-400); RBC 4.74 10^6/uL (4.36-5.78); RDW 11.5 % (11.8-14.1)
[2025-02-01 22:18] LABS: ALT 25 U/L (16-63); AST 32 U/L (15-37); Albumin 3.9 g/dL (3.4-5.0); Alkaline Phosphatase 77 U/L (46-116); Anion Gap 5.3 mmol/L (3-11); BUN 14 mg/dL (7-18); Bilirubin, Total 0.7 mg/dL (0.2-1.0); CO2 28.7 mmol/L (21.0-32.0); CREATININE 1.1 mg/dL (0.70-1.30); Calcium 9.3 mg/dL (8.5-10.1); Chloride 102 mmol/L (98-107); Estimated GFR 82.81 (mL/min/1.73m2); Glucose 93 mg/dL (74-106); Potassium 4.1 mmol/L (3.5-5.1); Sodium 136 mmol/L (136-145); Total Protein 7.5 g/dL (6.4-8.2)
[2025-02-03 10:47] LABS: Lyme Ab w Rflx to Lyme Confirm Negative (Negative)
[2025-02-05 23:14] LABS: Anaplasma phagocytophilum Negative (Negative); B. miyamotoi PCR Negative (Negative); Babesia divergens/MO-1 Negative (Negative); Babesia duncani Negative (Negative); Babesia microti Negative (Negative); Ehrlichia chaffeensis Negative (Negative); Ehrlichia ewingii/canis Negative (Negative); Ehrlichia muris eauclairensis Negative (Negative)
[2025-02-06 16:06] LABS: Anaplasma phagocytophilum Ab <1:64 titer (<1:64)
== END 2025-02-01 18:07 | disposition home or self-care (01) ==
LOC: NCHCN 18:06
PROVIDERS: PCP Nurse Practitioner Family; Visit Provider Physician Assistant
DX: M79.18 Myalgia, other site (principal)
CPT/HCPCS: 80053; 85027; 86666; 86753; 87798; 86618

== ENCOUNTER 2025-02-11 12:17 | Emergency (ER) | payer OTHER, SELFPAY ==
[2025-02-11] VITALS (13 sets, daily range): BP systolic 122–138; BP diastolic 69–77; PULSE 41–62; RESP 14–24; TEMP 36.6–36.9; O2SAT 97–100
--- NOTE | 2025-02-11 12:30 | RT.EKG_ITS ---
APPROVED REPORT Exam: Resting ECG Reason for Exam: baseline/screening Patient Location: E HR:46 bpm ECG Measurements Heart Rate 46 AXIS NV 150 P 52 QRSd 111 QRS -32 QT 442 T 14 QTc 388 Conclusion Sinus bradycardia...rate< 60 Probable left atrial enlargement...P >50mS, <-0.10mV V1 Left axis deviation...QRS axis (-30,-90) ST elev, probable normal early repol pattern...ST elevation, age<55 Physician: no stemi, but j point elevation present
--- NOTE | 2025-02-11 12:30 | DI.CT_ITS ---
Exam(s) CT BRAIN NECK CTA EXAM: CT BRAIN NECK CTA CLINICAL HISTORY: ?vega's palsy vs cva. TECHNIQUE: Imaging Protocol: Axial CT angiography was performed with multi- slice acquisition and multi-planar and MIP reconstructions. CONTRAST MATERIAL: Intravenous: Omnipaque 350 Contrast volume:7 ml COMPARISON: No exams were available for comparison FINDINGS: CT Head W/O and W contrast: Ventricles and Extra axial spaces: Normal in size and morphology for the patient's age. Hemorrhage: None. Cerebral parenchyma: No evidence of acute infarct or mass. Midline shift: None. Brainstem/Cerebellum: No acute findings.. Calvarium: Normal. Visualized Paranasal sinuses/Mastoids: Clear. Soft Tissues: Unremarkable. Enhancement: Normal. Venous sinuses are patent. CTA Brain W: Internal Carotid Arteries: Right: No aneurysm, occlusion or significant stenosis. Left: No aneurysm, occlusion or significant stenosis. Middle Cerebral Arteries: Right: No aneurysm, occlusion or significant stenosis. Left: No aneurysm, occlusion or significant stenosis. Anterior Cerebral Arteries: Right: No aneurysm, occlusion or significant stenosis. Left: No aneurysm, occlusion or significant stenosis. Posterior cerebral Arteries: Right: No aneurysm, occlusion or significant stenosis. Left: No aneurysm, occlusion or significant stenosis. Vertebral Arteries: Right: Dominant. No dissection occlusion or significant stenosis. Left: Terminates in PICA. No section occlusion or significant stenosis. Basilar Artery: No aneurysm, occlusion or significant stenosis. CTA Neck W: Common Carotid: Right: No dissection, occlusion or significant stenosis. Left: No dissection, occlusion or significant stenosis. External Carotid: Right: No dissection, occlusion or significant stenosis. Left: No dissection, occlusion or significant stenosis. Internal Carotid: Right: No dissection, occlusion or significant stenosis. Left: No dissection, occlusion or significant stenosis. Vertebral Artery: Right: No dissection, occlusion or significant stenosis. Left: No dissection, occlusion or significant stenosis. Lung Apices: No acute findings. Bones: No acute abnormality. Soft Tissues: Normal. IMPRESSION: 1. CTA brain: Normal CTA examination of the [place] of [place]. 2. Head CT: No acute abnormality. 3. CTA neck: No evidence of atherosclerotic disease. No evidence of occlusion, significant stenosis or dissection. RADIATION DOSE DELIVERED: 2,175.3mGy.cm Total DLP DATA REPOSITORY: All CT scans at this facility are submitted to the National Radiology Data Registry (NRDR) Dose Index Registry (DIR) with the [employer] (ACR). RADIATION OPTIMIZATION: All CT scans at this facility use at least one of these dose optimization techniques: automated exposure control; mA and/or kV adjustment per patient size (includes targeted exams where dose is matched to clinical indication); or iterative reconstruction.
[2025-02-11] MEDS: Normal Saline - Diluent 50 ML VIAL IJ (12:37)
[2025-02-11] MEDS: Omnipaque 350 MG/ML 100 ML BTL 70 ML IJ (12:41)
[2025-02-11 12:50] LABS: Abs Immature Grans 0.04 10^3/uL (0.0-0.06); Absolute Basophil Count 0.05 10^3/uL (0.0-0.2); Absolute Eosinophil Count 0.05 10^3/uL (0.0-0.7); Absolute Lymphocyte Count 2.29 10^3/uL (1.2-3.4); Absolute Monocyte Count 0.48 10^3/uL (0.1-0.8); Absolute Neutrophil Count 4.16 10^3/uL (1.2-6.7); Basophils % 0.7 %; Eosinophils % 0.7 %; HCT 42.2 % (40.0-50.0); HGB 14.7 g/dL (13.5-17.5); Immature Grans % 0.6 %; Lymphocytes % 32.4 %; MCH 31.4 pg (27.0-33.0); MCHC 34.8 % (32.0-36.0); MCV 90 fL (80-95); MPV 9.1 fL (8.0-11.0); Monocytes % 6.8 %; Neutrophils % 58.8 %; Platelet Count 244 10^3/uL (130-400); RBC 4.68 10^6/uL (4.36-5.78); RDW 11.7 % (11.8-14.1); WBC 7.07 10^3/uL (4.4-10.8)
--- NOTE | 2025-02-11 13:17 | W.ED.GENAD ---
Discharge Plan Disposition Patient Disposition: Home Condition: Stable Discharge Details Clinical Impression: Echevarria's palsy Primary Care Provider: Lacey Newell ED Provider: Robert Encarnacion Home Meds and New Rx's Prescriptions: New valacyclovir 1 gram tablet 1,000 mg PO TID 7 Days Qty: 21 0RF prednisone 20 mg tablet 70 mg PO DAILY 6 Days Qty: 21 0RF Rx Instructions: start tomorrow Continued doxycycline hyclate 1 tab PO BID Discharge Instructions Instructions: Echevarria's palsy, Prednisone, Valacyclovir Additional Instructions: You were seen in the emergency department for your Echevarria's palsy, your CTA was negative, we performed a teleneuro visit and they recommend starting valacyclovir and prednisone which were sent to [facility] in [place]. It is unknown what is causing your Echevarria's palsy but you need to treated with antiviral and steroids to prevent any further complications of facial paralysis, if you should worsen and have fever or motor weakness of upper or lower extremities or any visual changes or other worrying signs please return to the emergency department immediately. MRI shows no acute abnormality Referrals: Lacey Newell [Primary Care Provider, Medicine] Discharge Data Discharge Date/Time-TO BE ENTERED AT DEPARTURE: 02/11/25 17:23 HPI General Date/Time Provider Initiated Documentation: 02/11/25 12:31. HPI Narrative: 49 year-old male presents to ED today by POV/ambulating with a chief complaint of L sided facial droop, eye abnormality, no forehead involvement with onset at least 0900, but possibly last night. Quality described as just isolated facial numbness/tingling to tongue, no radiation to slurred speech, chest pain, palpitations, fever, eye pain, rash, ear pain, drooling, numnbess to UE's/LEs, weakness. Severity is described as mild to moderate. Palliating factors include nothing specific attempted. Provoking factors include nothing specific. Events leading up to the incident/Associated Symptoms: Patient is on day 9 of treatment for possible anaplasmosis. Patient not anticoagulated. Related Data Home Medications ?Medication ?Instructions ?Recorded ?Confirmed doxycycline hyclate 1 tab PO BID 02/11/25 02/11/25 prednisone 20 mg tablet 70 mg (3.5 x 20 mg) PO DAILY 6 02/11/25 days #21 tabs valacyclovir 1 gram tablet 1,000 mg PO TID 7 days #21 tabs 02/11/25 Previous Rx's ?Medication ?Instructions ?Recorded prednisone 20 mg tablet 70 mg (3.5 x 20 mg) PO DAILY 6 02/11/25 days #21 tabs valacyclovir 1 gram tablet 1,000 mg PO TID 7 days #21 tabs 02/11/25 Allergies Allergy/AdvReac Type Severity Reaction Status Date / Time No Known Allergies Allergy Verified 02/11/25 12:24 General Stated Complaint: [facility]Medical UNRULY: 2 Review of Systems All systems reviewed & are unremarkable except as noted in HPI and below Exam Narrative Exam Narrative: GENERAL APPEARANCE: Well-nourished, non-toxic, awake and alert, atraumatic, no acute distress. SKIN: Warm, pink, dry, intact, without rashes/lesions/ulcerations. HEAD: Normocephalic, atraumatic, normal hair distribution for gender/age. EYES: Normal conjunctiva, no exudates on lids/lashes. ENT: Nares patent, no circumoral cyanosis, no facial swelling, EOMs intact without nystagmus NECK: Supple, trachea midline, painless cervical ROM. LUNGS/CHEST: Lungs CTA bilaterally-no rhonchi/rales/wheezes diffusely, non-labored respirations, normal A/P diameter, symmetrical expansion, no chest wall deformity HEART (CV/PV): Regular rate and rhythm without murmur, no peripheral edema, no JVD. ABDOMEN: Soft, non-distended, no guarding. MSK: Normal ROM, no swelling/deformity to bilateral UEs or LEs, moving all extremities without weakness, no cyanosis, spine midline without tenderness, normal curvature. NEURO: Mental Status AAOx4 - alert to person, place, time, events No facial droop, no forehead involvement, no cerebellar signs Motor: No focal weakness - strength 5/5 in bilateral UEs and LEs, proximal and distal, symmetric. Sensory: sensation intact to light touch globally. Gait normal: patient ambulated without ataxia into ED room. PSYCH: euthymic, cooperative, pleasant, appropriate speech Course Vital Signs Vital signs: Vital Signs Temperature 36.6 C 02/11/25 12:18 Pulse 55 L 02/11/25 12:18 Respiratory Rate 14 02/11/25 12:18 Blood Pressure 124/76 02/11/25 12:18 Pulse Oximetry 98 02/11/25 12:18 Temperature 36.6 C 02/11/25 12:30 Temperature Source Oral 02/11/25 12:30 Pulse 55 L 02/11/25 12:30 Respiratory Rate 14 02/11/25 12:30 Blood Pressure 124/76 02/11/25 12:30 Blood Pressure Position Sitting 02/11/25 12:30 Pulse Oximetry 98 02/11/25 12:30 Oxygen Delivery Method Room Air 02/11/25 12:30 Oxygen Flow Rate 0 02/11/25 12:30 Pain Level 0 02/11/25 12:30 Lab/Test Results Lab/Test Results: Laboratory Tests Range/Units 02/11/25 12:40 WBC (4.4-10.8) 10^3/uL 7.07 RBC (4.36-5.78) 10^6/uL 4.68 Hgb (13.5-17.5) g/dL 14.7 Hct (40.0-50.0) % 42.2 MCV (80-95) fL 90 MCH (27.0-33.0) pg 31.4 MCHC (32.0-36.0) % 34.8 RDW (11.8-14.1) % 11.7 L Plt Count (130-400) 10^3/uL 244 MPV (8.0-11.0) fL 9.1 Immature Gran % % 0.6 Neutrophils % % 58.8 Lymphocytes % % 32.4 Monocytes % % 6.8 Eosinophils % % 0.7 Basophils % % 0.7 Nucleated RBC % (0.0-0.3) % 0.0 Absolute Neutrophils (1.2-6.7) 10^3/uL 4.16 Absolute Lymphocytes (1.2-3.4) 10^3/uL 2.29 Absolute Monocytes (0.1-0.8) 10^3/uL 0.48 Absolute Eosinophils (0.0-0.7) 10^3/uL 0.05 Absolute Basophils (0.0-0.2) 10^3/uL 0.05 Medical Decision Making This dictation utilizes [id number] dictation software and may contain unedited grammatical errors. 49 year-old male presents to ED today by POV/ambulating with a chief complaint of L sided facial droop, eye abnormality, no forehead involvement with onset at least 0900, but possibly last night. Quality described as just isolated facial numbness/tingling to tongue, no radiation to slurred speech, chest pain, palpitations, fever, eye pain, rash, ear pain, drooling, numnbess to UE's/LEs, weakness. Severity is described as mild to moderate. Palliating factors include nothing specific attempted. Provoking factors include nothing specific. Events leading up to the incident/Associated Symptoms: Patient is on day 9 of treatment for possible anaplasmosis. Patients' medical history: Negative, otherwise healthy. Family and social history: Exercises frequently, eats healthy diet, non-smoker. Pertinent exam findings / vital signs include left-sided lower motor neuron palsy of the face, no lesions to ear, EOMs intact without nystagmus, no forehead paralysis, strength 5/5 diffusely to upper and lower extremities, benign cardiopulmonary status, no rashes. Differential / pathologies of concern include VZV, [place] Cesar, tickborne illness, Echevarria's palsy of unknown origin, CVA. Diagnostic studies of: - CBC, CMP, troponin, lipase, TSH, EKG, CTA brain and neck, MRI brain with and without contrast. - CBC shows no acute abnormality - CMP is within normal limits - Magnesium within normal limits - Troponin negative - Lipase negative - TSH within normal limits - CTA of the brain and neck is negative - EKG shows some early repull patterns with elevated J-point's diffusely Interventions of: - 1 g p.o. valacyclovir, 70 mg p.o. prednisone. - Teleneuro discussed would like MRI brain with and without contrast which is pending at time of signout to oncoming provider, plan to prescribe 7 days of prednisone at that dose as well as 3 times daily valacyclovir for 7 days ED Course/Assessment/Plan: 49-year-old male presents with possible Echevarria's palsy, has been being treated on day 9 with doxycycline for empiric tickborne illness which I reviewed old labs and it is negative. CTA of the brain and neck is completely benign. Patient likely has Echevarria's palsy and teleneuro recommends MRI brain with and without contrast with negative findings they would not recommend LP. Plan to prescribe him 7 days of valacyclovir 3 times daily as well as 70 mg prednisone for 7 days daily. Patient has been stable throughout visit, he has been counseled by neurology to patch his eye at night, I stressed strict return criteria for the patient, patient is signed out to Celsa Mccann NP with MRI brain with and without contrast pending, medications already sent. Findings not consistent with CVA, devin cesar, active shingles infection. Disposition of Echevarria's Palsy. Patient verbalized understanding of the plan and return to ED criteria and engaged in shared decision making. Medical Records Medical records reviewed: Yes I reviewed the patient's medical records. Imaging Data Radiologic Study: Attestation: I personally reviewed and interpreted this imaging study as follows: Imaging: CT Scan Radiologist's impression: EXAM: CT BRAIN NECK CTA CLINICAL HISTORY: ?echevarria's palsy vs cva. TECHNIQUE: Imaging Protocol: Axial CT angiography was performed with multi-slice acquisition and multi-planar and MIP reconstructions. CONTRAST MATERIAL: Intravenous: Omnipaque 350 Contrast volume:7 ml COMPARISON: No exams were available for comparison FINDINGS: CT Head W/O and W contrast: Ventricles and Extra axial spaces: Normal in size and morphology for the patient's age. Hemorrhage: None. Cerebral parenchyma: No evidence of acute infarct or mass. Midline shift: None. Brainstem/Cerebellum: No acute findings.. Calvarium: Normal. Visualized Paranasal sinuses/Mastoids: Clear. Soft Tissues: Unremarkable. Enhancement: Normal. Venous sinuses are patent. CTA Brain W: Internal Carotid Arteries: Right: No aneurysm, occlusion or significant stenosis. Left: No aneurysm, occlusion or significant stenosis. Middle Cerebral Arteries: Right: No aneurysm, occlusion or significant stenosis. Left: No aneurysm, occlusion or significant stenosis. Anterior Cerebral Arteries: Right: No aneurysm, occlusion or significant stenosis. Left: No aneurysm, occlusion or significant stenosis. Posterior cerebral Arteries: Right: No aneurysm, occlusion or significant stenosis. Left: No aneurysm, occlusion or significant stenosis. Vertebral Arteries: Right: Dominant. No dissection occlusion or significant stenosis. Left: Terminates in PICA. No section occlusion or significant stenosis. Basilar Artery: No aneurysm, occlusion or significant stenosis. CTA Neck W: Common Carotid: Right: No dissection, occlusion or significant stenosis. Left: No dissection, occlusion or significant stenosis. External Carotid: Right: No dissection, occlusion or significant stenosis. Left: No dissection, occlusion or significant stenosis. Internal Carotid: Right: No dissection, occlusion or significant stenosis. Left: No dissection, occlusion or significant stenosis. Vertebral Artery: Right: No dissection, occlusion or significant stenosis. Left: No dissection, occlusion or significant stenosis. Lung Apices: No acute findings. Bones: No acute abnormality. Soft Tissues: Normal. IMPRESSION: 1. CTA brain: Normal CTA examination of the [place]. 2. Head CT: No acute abnormality. 3. CTA neck: No evidence of atherosclerotic disease. No evidence of occlusion, significant stenosis or dissection. Lab Data Lab results reviewed: Yes I reviewed the patient's lab results. Labs: Laboratory Tests Range/Units 02/11/25 12:40 WBC (4.4-10.8) 10^3/uL 7.07 RBC (4.36-5.78) 10^6/uL 4.68 Hgb (13.5-17.5) g/dL 14.7 Hct (40.0-50.0) % 42.2 MCV (80-95) fL 90 MCH (27.0-33.0) pg 31.4 MCHC (32.0-36.0) % 34.8 RDW (11.8-14.1) % 11.7 L Plt Count (130-400) 10^3/uL 244 MPV (8.0-11.0) fL 9.1 Immature Gran % % 0.6 Neutrophils % % 58.8 Lymphocytes % % 32.4 Monocytes % % 6.8 Eosinophils % % 0.7 Basophils % % 0.7 Nucleated RBC % (0.0-0.3) % 0.0 Absolute Neutrophils (1.2-6.7) 10^3/uL 4.16 Absolute Lymphocytes (1.2-3.4) 10^3/uL 2.29 Absolute Monocytes (0.1-0.8) 10^3/uL 0.48 Absolute Eosinophils (0.0-0.7) 10^3/uL 0.05 Absolute Basophils (0.0-0.2) 10^3/uL 0.05 Sodium (136-145) mmol/L 140 Potassium (3.5-5.1) mmol/L 4.0 Chloride (98-107) mmol/L 102 Carbon Dioxide (21.0-32.0) mmol/L 29.0 Anion Gap (3-11) mmol/L 9.0 BUN (7-18) mg/dL 18 Creatinine (0.70-1.30) mg/dL 1.0 Est GFR (CKD-EPI 2020) (mL/min/1.73m2) 92.84 Glucose (74-106) mg/dL 110 H Calcium (8.5-10.1) mg/dL 9.2 Magnesium (1.8-2.4) mg/dL 2.2 Total Bilirubin (0.2-1.0) mg/dL 0.5 AST (15-37) U/L 28 ALT (16-63) U/L 45 Alkaline Phosphatase (46-116) U/L 120 H Troponin I (<or=76) ng/L 5 Total Protein (6.4-8.2) g/dL 7.7 Albumin (3.4-5.0) g/dL 4.0 Lipase (<78) U/L 39 TSH (0.36-3.74) uIU/mL 1.34 PFSH All Active Problems (Updated 02/11/25 @ 16:10 by MAYCOL San) Echevarria's palsy (Acute) Social History Smoking risk assessment performed?: No Alcohol Intake: current Alcohol Intake frequency: a few times a month Drug use: Daily Substance use type: marijuana Do you feel safe at home: Yes Do you feel safe in your relationship?: Yes PAWSS Have you Been Recently Intoxicated or Drunk Within the Last 30 days?: No Have you Ever Experienced Previous Episodes of Alcohol Withdrawal?: No Have you ever Experienced Withdrawal Seizures?: No Have you ever Experienced Delirium Tremens(DT)s?: No Have you ever undergone Alcohol Rehabilitation Treatment (i.e, inpt ot outpatient treatment programs)?: No Have you ever Experienced Blackouts?: No Have you ever Combined Alcohol with other Downers within the last 90 days?: No Have you ever Combined Alcohol with any other Substance of Abuse during the last 90 days?: No Positive Blood Alcohol level on Presentation? [PCS.BAL]: Unable to Obtain Evidence of Increased Autonomic Activity (i.e. HR>120, tremor, sweating, agitation, nausea)?: No Result: 0
[2025-02-11 13:23] LABS: ALT 45 U/L (16-63); AST 28 U/L (15-37); Alkaline Phosphatase 120 U/L (46-116); BUN 18 mg/dL (7-18); Bilirubin, Total 0.5 mg/dL (0.2-1.0); Calcium 9.2 mg/dL (8.5-10.1); Chloride 102 mmol/L (98-107); Estimated GFR 92.84 (mL/min/1.73m2); Glucose 110 mg/dL (74-106); Lipase 39 U/L (<78); Magnesium 2.2 mg/dL (1.8-2.4); Sodium 140 mmol/L (136-145); TSH (W/Ref FT4) 1.34 uIU/mL (0.36-3.74); Total Protein 7.7 g/dL (6.4-8.2); Troponin I 5 ng/L (<or=76)
--- NOTE | 2025-02-11 14:45 | DI.MRI_ITS ---
Exam(s) MR BRAIN WO/W EXAM: MR BRAIN WO/W CLINICAL HISTORY: facial palsy TECHNIQUE: Multiplanar multisequence MRI of the brain was performed. CONTRAST MATERIAL: IV Contrast: 14 mL of Dot[place] contrast administered. COMPARISON: CT CT BRAIN NECK CTA from 02/11/2025 FINDINGS: VENTRICLES AND EXTRA AXIAL SPACES: Normal in size and morphology for the patient's age. HEMORRHAGE: None. CEREBRAL PARENCHYMA: No focus of restricted diffusion to suggest acute infarct. No space-occupying lesion identified. MIDLINE SHIFT: None. BRAINSTEM/CEREBELLUM: Normal. CALVARIUM: Normal. ENHANCEMENT: No suspicious enhancement identified. VISUALIZED PARANASAL SINUSES/MASTOIDS: Clear. [place]: Normal flow void. PITUITARY GLAND: Unremarkable. OTHER FINDINGS: IMPRESSION: Unremarkable MRI of the brain. DATA REPOSITORY:
[2025-02-11] MEDS: predniSONE 20 MG TAB 70 MG PO (15:02)
[2025-02-11] MEDS: valACYclovir 500 MG TAB 1000 MG PO (15:02)
[2025-02-11] MEDS: Gadoterate meglumine 20 ML VIAL 14 ML IVP (15:59)
[2025-02-14 09:36] LABS: Anaplasma phagocytophilum Negative (Negative); B. miyamotoi PCR Negative (Negative); Babesia divergens/MO-1 Negative (Negative); Babesia duncani Negative (Negative); Babesia microti Negative (Negative); Ehrlichia chaffeensis Negative (Negative); Ehrlichia ewingii/canis Negative (Negative); Ehrlichia muris eauclairensis Negative (Negative)
[2025-02-15 13:50] LABS: Lyme Ab w Rflx to Lyme Confirm Positive (Negative)
[2025-02-15 15:21] LABS: Lyme IgG Ab Positive (Negative); Lyme IgM Ab Positive (Negative)
== END 2025-02-11 17:23 | disposition home or self-care (01) ==
PROVIDERS: Emergency Provider Physician Assistant; PCP Nurse Practitioner Family
DX: G51.0 Bell's palsy (principal)
CPT/HCPCS: 36415; 70496; 70498; 70553; 80053; 83690; 86617; 87798; 93005; 99285; 83735; 84443; 84484; 85025; 86618; 93010; 99284; J3490; J7512